=== PATIENT | male | born 1945 | race Caucasian/White ===

== ENCOUNTER → 2018-03-21 08:21 | Outpatient (CLI) | payer MEDICARE, SELFPAY ==
--- NOTE | 2018-03-21 08:58 | PET_ITS ---
EXAMINATION: FDG PET CT INDICATIONS: A 72-year-old male with history of head and neck carcinoma presenting for restaging examination. COMPARISON EXAMINATION: Previous FDG PET study dated 09/09/17. TECHNIQUE: Following the intravenous administration of 15.9 mCi of F-18 deoxyglucose via the right antecubital fossa, multiplanar image acquisitions of the neck, chest, abdomen and pelvis to level of mid thigh, obtained at one hour post radiopharmaceutical administration contemporaneously interpreted with the current CT of the neck, chest, abdomen and pelvis to level of mid thigh, dated 03/21/18 via coregistration and previous FDG PET study dated 09/09/17 reveal: SERUM GLUCOSE LEVEL: 92 mg/dl. HEIGHT: 74 inches. WEIGHT: 177 lbs. FINDINGS: 1. There is no quantitative scintigraphic evidence of abnormal increased glucose metabolism on meticulous inspection of whole body acquisitions to include all three axis reconstructions. 2. Normal physiologic distribution of the radiopharmaceutical is apparent in the hepatic and splenic parenchyma, both renal units, bladder and visualized intestinal tract. Focal increased glucose concentration is observed in the periosseous soft tissues of the right proximal femur associated with apparent orthopedic hardware placement most consistent with postsurgical change. Prominent glucose metabolism is defined in the descending thoracic aorta. There is a focal increase in glucose metabolism manifest in the midline anterior fifth lumbar vertebra corresponding to apparent osteophyte formation most consistent with degenerative arthritis. Udml-G-Lpjv-MediPort placement is noted. The prior defined morphologic-anatomic changes noted on CT of the neck, chest, abdomen and pelvis manifest on the FDG PET CT study dated 09/09/17 are essentially unchanged on the present examination. PET/PET/CT Tumor Base -Thigh Subs IMPRESSION: 1. NEGATIVE EXAMINATION. There is no definitive quantitative scintigraphic evidence of recurrent-metastatic viable neoplasm. 2. Prominent glucose concentration observed in the descending thoracic aorta is commensurate with activated leukocytes associated with atherosclerotic plaque formation. (Hanjulianna et al, Clinical Nuclear Medicine 29:93, 2004). 3. Overall, compared to the prior FDG PET study dated 09/09/17, there is current and apparent continued absence of defined viable neoplastic disease. Electronic Signature Richar Dowd D.O. Electronically Signed: Richar Dowd DO at 7:22 EDT Tel , Service support ,
== END ==
PROVIDERS: Family Provider Family Medicine; PCP Family Medicine
DX: C01 Malignant neoplasm of base of tongue (principal)
CPT/HCPCS: 78815; 96523; A9552; A4216

== ENCOUNTER → 2020-02-27 15:13 | Outpatient (CLI) | payer MEDICARE, SELFPAY ==
--- NOTE | 2020-02-27 15:23 | PET_ITS ---
EXAMINATION: FDG PET-CT INDICATIONS: A 74-year-old male with reported history of head and neck carcinoma presenting for restaging examination. COMPARISON EXAMINATION: Previous FDG PET study report dated 03/21/2018 INDEX LESION SIZE SUV INTERPRETATION NEW: prostate gland-R 17.6-mm (frame 66) 4.5 May be further investigated with magnetic resonance imaging secondary to quantitative degree of uptake TECHNIQUE: Following the intravenous administration of 10.98 mCi of F-18 deoxyglucose via the left antecubital fossa, multiplanar image acquisitions of the neck, chest, abdomen and pelvis to level of mid thigh, obtained at one hour post radiopharmaceutical administration contemporaneously interpreted with the current CT of the neck, chest, abdomen and pelvis, to level of mid thigh, dated 02/26/2020 via coregistration and previous FDG PET study report dated 03/21/2018 reveals: BLOOD GLUCOSE LEVEL:?? 83 mg/dl?HEIGHT:?74 inches?WEIGHT: 185 lbs. FINDINGS: 1. There is an increase in radiopharmaceutical concentration observed in the lower pelvis, caudal to the urinary bladder, contiguous to the prostate gland extending from the mid gland-right base. The calculated maximal standard uptake value is 4.5. The maximal axial diameter of the 17.6-mm (AP). 2. Normal physiologic distribution of the radiopharmaceutical is apparent in the hepatic (2.1) and splenic parenchyma, both renal units, bladder and visualized intestinal tract. The visualized portion of the cerebral cortex demonstrate symmetric and preserved glucose metabolism. Diffuse radiopharmaceutical concentration is noted in all four quadrants of the abdomen and pelvis. Prominent radiopharmaceutical concentration is observed in the left lower hemipelvis in proximity to the left ureterovesical junction with associated calcified soft tissue. Pertinent CT findings are as follows: CHEST: Ana Lilia-cath placement is noted. There is atherosclerotic calcification defined in the thoracic aorta without evidence of dilatation-aneurysm formation. Coronary arterial calcification is observed. Bilateral axillary and subcentimeter scattered mediastinal soft tissue is ametabolic. Emphysematous changes are noted in the bilateral upper lung zones. There are no parenchymal densities-nodules defined in the right and left hemithorax demonstrating discernible increased FDG uptake. ABDOMEN AND PELVIS: Calcification is noted in the abdominal aorta. The maximal axial diameter of the distal right common iliac artery is 20.2-mm. The prostate gland is prominent in size with dystrophic calcification. Abdominal-pelvic arterial calcification is observed. There appears to be evidence of renal calculus at the level of the distal left ureter. SKELETAL: Degenerative changes are noted in the cervical, thoracic and lumbar spine. Facilitated uptake is noted in the intervertebral disc space at the level of the third-fourth lumbar vertebrae most consistent with degenerative arthritis. PET/PET/CT Tumor Base -Thigh Subs IMPRESSION: 1. Increased glucose metabolism observed in the prostate gland to the right of the midline may be further investigated with magnetic resonance imaging if neoplasia is a diagnostic consideration. 2. Overall, compared to the prior FDG PET study report dated 03/21/2018, increased radiopharmaceutical concentration observed in the region of the prostate gland may be further investigated with magnetic resonance imaging if clinically indicated. Electronic Signature Richar Dowd D.O. Accurate Quantification of SUVs for this report are calculated using the exclusive patented [employer]. Electronically Signed: Richar Dowd DO at 23:12 EDT Tel , Service support ,
== END ==
PROVIDERS: PCP Family Medicine; Referring Provider Otolaryngology; Visit Provider Otolaryngology
DX: C01 Malignant neoplasm of base of tongue (principal); C77.0 Secondary and unspecified malignant neoplasm of lymph nodes of head, face and neck
CPT/HCPCS: 78815; A9552

== ENCOUNTER → 2020-03-18 14:19 | Outpatient (CLI) | payer MEDICARE, SELFPAY ==
[2017-07-01 10:34] VITALS: BMI 22.7
[2020-03-18 15:25] LABS: PSA,Total- Diagnostic 0.17 ng/mL (0.0-4.0)
== END ==
PROVIDERS: PCP Family Medicine; Referring Provider Urology; Visit Provider Urology
DX: R97.20 Elevated prostate specific antigen [PSA] (principal); R82.998 Other abnormal findings in urine
CPT/HCPCS: 84153; 87077; 87086; 87088; 87186

== ENCOUNTER → 2020-10-01 10:19 | Outpatient (CLI) | payer MEDICARE, SELFPAY | PROVIDERS: PCP Family Medicine; Referring Provider Urology; Visit Provider Urology | DX: N39.0 Urinary tract infection, site not specified (principal) | CPT/HCPCS: 87086 ==

== ENCOUNTER → 2021-01-06 | Outpatient (CLI) | payer MEDICARE, SELFPAY | END | disposition home or self-care (01) | LOC: LABSPEC 12:15 | PROVIDERS: PCP Family Medicine; Visit Provider Nurse Practitioner Adult Health | DX: N40.1 Benign prostatic hyperplasia with lower urinary tract symptoms (principal) | CPT/HCPCS: 87086; 87088 ==

== ENCOUNTER 2021-02-07 06:15 | Day surgery (SDC) | payer MEDICARE, SELFPAY ==
--- NOTE | 2021-02-04 11:11 | EKG12_ITS ---
Test Reason : PRE OP Blood Pressure : / mmHG Vent. Rate : 079 BPM Atrial Rate : 079 BPM P-R Int : 148 ms QRS Dur : 134 ms QT Int : 400 ms P-R-T Axes : 059 169 050 degrees QTc Int : 458 ms Normal sinus rhythm Right bundle branch block Left posterior fascicular block Bifascicular block Abnormal ECG Confirmed by TONY INGRAM, ABIMBOLA ([id number]), manager editorial JUANI WALL ([id number]) on 02/05/2021 9:33:09 AM Referred By: Mark Aguilar Confirmed By:ABIMBOLA JIMENEZ MD
[2021-02-04 11:59] LABS: Hemoglobin 14.5 g/dL (13.0-16.5); Mean Corp Hgb Conc 31.5 g/dL (32-36); Mean Corpuscular Hgb 28.7 pg (27.0-32.0); Mean Corpuscular Volume 90.9 fL (80-94); Mean Platelet Vol. 8.7 fl (6.2-12.0); Platelet Count 224 K/mm3 (150-450); RBC Distribution Width CV 13.5 % (11.6-14.6); RBC Distribution Width SD 45.3 fl (35.1-43.9); Red Blood Count 5.06 M/mm3 (4.6-6.2); White Blood Count 6.2 K/mm3 (4.4-11.0)
[2021-02-04 12:13] LABS: Anion Gap 4 (5-15); BUN 32 mg/dL (7-18); BUN/Creat Ratio 26.2 RATIO (10-20); Calcium,Total 9.2 mg/dL (8.5-10.1); Chloride 107 mmol/L (98-107); Creatinine, Serum 1.22 mg/dL (0.70-1.30); EST Glomerular Filtration Rate 62 mL/min (>60); Est Glom Filt Rate - Afr Amer 75 mL/min (>60); Glucose 91 mg/dL (74-106); Potassium 4.1 mmol/L (3.5-5.1); Sodium Level 140 mmol/L (136-145)
[2021-02-07] VITALS (11 sets, daily range): BP systolic 111–181; BP diastolic 72–100; PULSE 57–72; RESP 16–18; TEMP 36.2–36.8; O2SAT 92–100; BMI 21.4
[2021-02-07] MEDS: Lactated Ringers 1,000 ML 100 ML IV ×2 (06:59→11:06)
--- NOTE | 2021-02-07 08:25 | PROS_PTH ---
PATIENT: SANTINO HINOJOSA LOC: [facility] – [place] U#:[id number] AGE/SX: 75/M ROOM: RE02/07/[address]: Dr. Mark Aguilar MD : 1945 BED: DIS: 02/08/2021 SPEC #: [id number] RECD: 02/07/21 12:43 STATUS: KASIA REBelinda #: [id number] DANIEL: 02/07/21 08:[address]: Mark Aguilar DEPT: SURGICAL PATHOLOGY RECD BY: Kaylie Jones ENTERED: 02/07/21 13:50 SP TYPE: TURP OTHR DR: Dr. Farhan Saunders MD Tissues: Prostate, NOS Procedures: Surgery Specimen Level IV HEADER OPERATION: Cysto, TUR prostate, Olympus PRE-OP DIAGNOSIS: BPH with obstruction / lower urinary tract symptoms TISSUE SUBMITTED: Prostate chips MICROSCOPIC DIAGNOSIS Prostate chips, TUR: Benign prostatic hyperplasia, glandular and stromal type. Focal chronic inflammation, squamous metaplasia and basal cell hyperplasia. MIC:jimmy 02/11/2021 MICROSCOPIC DESCRIPTION Slides are reviewed. GROSS DESCRIPTION Received is one container labeled with the patient's name and designated prostate chips. The specimen consists of multiple irregular fragments of pink-akins, rubbery, soft tissue that in aggregate weigh 38.6 gm and measure in aggregate 9 x 9 x 4 cm. A few small fragments of akins-brown stones are also noted. Show Card Writer tissue is submitted in ten cassettes. / IMC:jimmy 02/07/21 TC:5 CPT: 76959
[2021-02-07] MEDS: Cefazolin 2 GM in 0.9% Normal Saline 100 ML IV (08:26)
--- NOTE | 2021-02-07 08:28 | PCM.HP.STD ---
HPI - General HPI Narrative SANTINO HINOJOSA, is a 75 M who presents with BPH and bladder outlet obstruction, he has been on maximal medical therapy and still has significant urinary symptoms and difficulties emptying his bladder so we can proceed with a TURP [facility] Medical History (Updated 02/07/21 @ 08:[address] Mark Aguilar MD) Cancer cardiac stent placement (~2014) Heart disease History of heart attack (~2014) Smoker Wears dentures Wears glasses Wears hearing aid Home Medications finasteride 5 mg PO DAILY 11/04/16 [History Last Taken 11/06/16 08:00] tamsulosin [Flomax] 0.4 mg PO DAILY 11/04/16 [History Last Taken Unknown] ciprofloxacin HCl [Cipro] 500 mg PO BID #10 tab 02/07/21 [Rx Last Taken Unknown] Allergy/AdvReac Type Severity Reaction Status Date / Time No Known Allergies Allergy Verified 01/31/21 13:26 Family History (Updated 09/28/17 @ 09:15 by Marivel Martinez) Father Alzheimer disease Mother Breast cancer Surgical History (Updated 01/31/21 @ 13:41 by Shari Hannah) History of back surgery History of partial knee replacement (~2004) Hx of neck surgery Hx of tonsillectomy Social History Smoking Status: Former smoker ROS Constitutional Constitutional: Denies chills, fever(s) or malaise Eyes Eyes: Denies blurry vision or change in vision ENT HEENT: Reports none Cardiovascular Cardiovascular: Denies chest pain or palpitations Respiratory/Chest Respiratory/Chest: Denies cough or shortness of breath with exertion Gastrointestinal Gastrointestinal: Denies abdominal pain, constipation or diarrhea Genitourinary Genitourinary: Reports systems reviewed and no addt'l complaints, except as documented Musculoskeletal Musculoskeletal: Denies back pain, joint stiffness or joint swelling Integumentary Integumentary: Denies dry skin, jaundice, lesions or rash Neurologic Neurologic: Denies confusion, syncope or weakness Psychiatric Psychiatric: Reports none; Denies anxiety or depression Endocrine Endocrinology: Denies excessive sweating, fatigue or flushing Hematologic/Lymphatic Hematologic/Lymphatic: Denies anemia, easy bleeding or easy bruising Vital Signs Vital Signs Vital Signs: 02/07/21 06:51 Temperature 97.9 F Temperature Source Temporal Pulse Rate 67 Respiratory Rate 16 Respiratory Pattern Normal Blood Pressure 160/100 H Blood Pressure Mean 120 Blood Pressure Source Monitor Blood Pressure Position Semi-Fowlers Blood Pressure Location Right Arm Pulse Ox 97 Oxygen Delivery Method Room Air Weight Weight: 75.6 kg Body Mass Index (BMI) 21.4 Physical Exam Const alert and oriented x3 General Appearance: cooperative HEENT normocephalic, head/scalp atraumatic, EAC's normal and TM's normal bilaterally Eyes PERRL and EOMs intact bilaterally Pupil: sluggish Neck no lymphadenopathy, supple and no JVD General: trachea midline Lymph Lymphatic: no lymphadenopathy noted, lymphedema and lymphadenopathy Resp normal respiratory effort, normal air movement and clear to auscultation bilaterally Cardio regular rate, regular rhythm and peripheral pulses 2+ throughout GI soft to palpation, non-tender and non-distended Extremity normal capillary refill and no clubbing, cyanosis or edema General Extremity: no tenderness to palpation of joints or extremities Skin no rashes or lesions noted General Skin Exam: turgor normal Lesions: no lesions Rashes: no rashes Neuro CN's II-XII intact bilaterally Speech: speech normal Motor Exam: strength 5/5 throughout; Negative for general weakness Psych thought process normal, cooperative and affect normal Appearance: appropriate Lab / Micro Data Result Diagrams: 02/04/21 11:32 02/04/21 11:32 Micro: Microbiology 02/06/21 11:15 SARS-CoV-2 Antigen (Rapid) - Final Interface Orders Assessment & Plan Assessment/Plan (1) BPH with obstruction/lower urinary tract symptoms: PLAN: Plan to proceed with transurethral section of the prostate
--- NOTE | 2021-02-07 08:30 | PCM.DC ---
Discharge Instructions Diet Discharge Diet: No restrictions Activity Discharge Activity: May not drive while taking narcotic pain medications. (for 3 days.) May shower in (days): 1 Dressing / Incision Call your doctor if your incision/area has: Continuous Slow Oozing, Increased Pain/ Swelling, Increased Redness and Foul Smelling Discharge Call your doctor if you observe: Fever of 101 or Higher, Numbness or Tingling, Shortness of breath, Dizziness, Calf discomfort and Uncontrolled pain Cleanse incision/area with: Keep Dressing Clean & Dry Follow Up Care Please Follow Up With: Mark Aguilar MD When: Call [phone] for an appointment Test Results: Test results from this visit will be discussed in further detail at your follow-up appointment, if applicable. Discharge Plan Admission Primary Reason for Your Visit: TURAparna Attending Provider: Mark Aguilar Primary Care Provider: Farhan Saunders Discharge Orders/Prescriptions Prescriptions: New ciprofloxacin HCl [Cipro] 500 mg tablet 500 mg PO BID Qty: 10 RF: 0 Continued tamsulosin [Flomax] 0.4 MG capsule 0.4 mg PO DAILY RF: 0 finasteride 5 MG tablet 5 mg PO DAILY RF: 0 Referrals / Follow Up: Mark Aguilar MD [STAFF PHYSICIAN] - Farhan Saunders MD [Primary Care Provider] -
--- NOTE | 2021-02-07 10:13 | PCM.OPRPT ---
Report of Operation Date of Procedure: 02/07/21 Pre-Operative Diagnosis: BPH with obstruction Post-Operative Diagnosis: Same Surgery/Procedure Performed:: Transurethral section of the prostate Description of Surgical Findings:: In the preoperative setting I discussed with the patient how the surgery would be done with expect afterwards. We discussed how a prostate resection is done and we discussed the risk of the surgery including, bleeding, infection, retrograde ejaculation, changes with ejaculation or intercourse,. We discussed the possibility that the resection of the prostate may not alleviate his urinary symptoms. We discussed the small risk of developing scar tissue along the urethral channel and strictures. We also discussed the chance of the prostate could grow back and he may need further surgery or treatment in the future for prostate problems. Patient was taken back to the operating room, timeout procedure was performed, he was identified and marked and placed on the operating room table. He underwent general anesthesia. He was placed in dorsolithotomy position. Penis and testicles were prepped and draped in usual sterile fashion. Went into the bladder using the visual obturator with a resectoscope. Once inside the bladder identified the right and left ureteral orifice. I then identified the prostate and the anatomy of the prostate. I marked out the area of the sphincter and the verumontanum was identified. I then proceeded with the prostate resection first resected the median lobe. And then resected the right lobe of the prostate. Then to resect the left lobe of the prostate. I then resected the apical tissue of the prostate. Made sure that there was no injury to the sphincter or the verumontanum was still intact. At the end of the resection all the chips were Ellik out of the bladder. I then identified the left and right ureteral orifice and these were confirmed to be in good position and effluxing and not injured. The resectoscope was removed, a 22 [place] catheter was placed into the bladder on continuous irrigation. And the urine was fairly light pink color and draining normally. He was taken back to the PACU in good condition. Surgeon: Jeff Type of Anesthesia: General Drains: 22 [place]ayan three-way catheter Admit VTE Documentation VTE Present on Admission: No VTE Mechan Device Prophylaxis: SCD's
[2021-02-07 10:51] LABS: Bedside Glucose 98 mg/dL (70-110)
[2021-02-07] MEDS: 0.9% Normal Saline 1,000 ML 125 ML IV ×2 (12:19→20:46)
[2021-02-07] MEDS: Ciprofloxacin 400 MG/200 ML BAG 200 MG IV (16:56)
[2021-02-07] MEDS: Finasteride 5 MG Tablet PO (18:43)
[2021-02-07] MEDS: Tamsulosin HCl 0.4 MG Capsule PO (18:43)
[2021-02-08 00:21] VITALS: BP 128/74; PULSE 66; RESP 16; TEMP 37.1; O2SAT 93
[2021-02-08 04:06] VITALS: BP 148/79; PULSE 70; RESP 16; TEMP 37; O2SAT 97
[2021-02-08] MEDS: Ciprofloxacin 400 MG/200 ML BAG 200 MG IV (04:09)
[2021-02-08] MEDS: 0.9% Normal Saline 1,000 ML 125 ML IV (05:15)
[2021-02-08 08:09] VITALS: BP 136/84; PULSE 70; RESP 16; TEMP 37; O2SAT 96
[2021-02-08 08:10] VITALS: PULSE 68
[2021-02-08] MEDS: Finasteride 5 MG Tablet PO (10:23)
[2021-02-08 13:00] VITALS: BP 139/88; PULSE 84; RESP 18; TEMP 36.7; O2SAT 97
[2021-02-08] MEDS: 0.9% Saline Lock 10 ML Syringe IV (13:42)
== END 2021-02-08 13:45 | disposition home or self-care (01) ==
LOC: SDC 06:17 → AC 06:17 → MS3 02-11 11:47
PROVIDERS: Anesthesiology; PCP Family Medicine; Referring Provider Urology; Visit Provider Urology
PROC: (CPT 52630; principal; 2021-02-07 08:15)
DX: N40.1 Benign prostatic hyperplasia with lower urinary tract symptoms (principal); N41.1 Chronic prostatitis; Z87.891 Personal history of nicotine dependence; I25.2 Old myocardial infarction; Z95.5 Presence of coronary angioplasty implant and graft; I45.10 Unspecified right bundle-branch block; Z79.899 Other long term (current) drug therapy; N13.8 Other obstructive and reflux uropathy
CPT/HCPCS: 52630; 36415; 80048; 82962; 85027; 87426; 88305; 93005; 99406; C9803; J7030; J7120; A4216; J0744; J2405

== ENCOUNTER → 2021-07-08 15:39 | Outpatient (CLI) | payer MEDICARE, SELFPAY ==
--- NOTE | 2021-07-08 15:00 | PET_ITS ---
EXAMINATION: FDG PET-CT INDICATIONS: A 75-year-old male with a history of head and neck carcinoma presenting for restaging examination. COMPARISON EXAMINATION: FDG PET CT study dated 02/29/20, CT of the chest report dated 06/26/21. INDEX LESION SIZE SUV INTERPRETATION NEW: Left anterior neck 12.6 mm largest (frame 217) 2.7 max Fulfills quantitative criteria for viable neoplasm. NEW: Carinal level mediastinum and right thoracic perihilum 44.2 mm largest (frame 189) 7.6 max Fulfills quantitative criteria for viable neoplasm. NEW: Left and right lobe hepatic parenchyma 8.8 max Fulfills quantitative criteria for viable neoplasm. NEW: Axial skeletal structures 4.9 max Fulfills quantitative criteria for viable neoplasm. TECHNIQUE: Following the intravenous administration of 19.01 mCi of F-18 deoxyglucose via the right antecubital fossa, multiplanar image acquisitions of the head, neck, chest, abdomen and pelvis to level of mid-thigh, lower extremities obtained at one hour post radiopharmaceutical administration contemporaneously interpreted with the current CT of the head, neck, chest, abdomen and pelvis to level of mid-thigh, lower extremities dated 07/08/21 via coregistration and FDG PET CT study dated 02/29/20, CT of the chest report dated 06/26/21 reveal: SERUM GLUCOSE LEVEL: mg/dl. HEIGHT: 62 inches. WEIGHT: lbs. FINDINGS: 1. Newly identified increased FDG distribution is defined in the left anterior neck involving level IV rendering a calculated maximum standard uptake value of 2.7. The maximum axial diameter of the largest corresponding hypermetabolic soft tissue density on review of CT of the chest dated 07/08/21 is 12.6 mm (AP). 2. Enhanced fluorine labeled glucose metabolism is currently visualized in the carinal level mediastinum and right thoracic perihilum registering a calculated maximum standard uptake value of 7.6. The maximum axial diameter of the largest metabolic, morphologic abnormality on review of CT of the chest dated 07/08/21 is 44.2 mm (AP). 3. Innumerable foci of increased radiopharmaceutical are manifest throughout the left and right lobe of an enlarged liver which demonstrates a maximum vertical dimension of 29.9 cm (normal less than 18.5). The calculated maximum standard uptake value is 8.8 with a lesion to liver background ratio greater than 2.0. Disseminated uptake noted throughout the left and right lobe preclude assessment of the largest individual metabolic abnormality. 4. Enhanced labeled GLUCOSE is observed in the right posterior first rib, sixth thoracic vertebra, right sacral ala, right acetabulum, posterior midline sacrum generating a calculated maximum standard uptake value of 4.9. 5. Normal physiologic distribution of the radiopharmaceutical is apparent in the hepatic (2.4/2.1) and splenic parenchyma, both renal units, bladder and visualized intestinal tract. The visualized portion of the cerebral cortex demonstrate symmetric and preserved glucose metabolism. Diffuse intestinal tract activity is noted throughout all four quadrants of the abdominal-pelvic retroperitoneum and mesentery consistent with normal physiologic distribution of the radiopharmaceutical. Pertinent CT findings are as follows. CHEST: A right hemithorax pleural effusion is nonglucose avid. Emphysematous changes are noted in the bilateral upper lung osorio. There is atherosclerotic calcification defined in the thoracic aorta without evidence of dilatation-aneurysm formation. Coronary arterial calcification is observed. There is visualization of the Jhqtfmmh-Evqi-P-Cath. Bilateral axillary soft tissue densities reveal no evidence of increased tracer uptake. ABDOMEN AND PELVIS: Atherosclerotic calcification is defined in the abdominal aorta without evidence of dilatation, aneurysm formation. Abdominal-pelvic arterial calcification is defined. Intravenous contrast material is noted within the urinary bladder. Free pelvic fluid is ametabolic. The abdominal aorta is tortuous in presentation with atherosclerotic calcification without evidence of dilatation-aneurysm. Pelvic arterial calcification is observed. Diffuse colonic diverticulosis is noted. SKELETAL: Orthopedic hardware placement is evident in the right proximal femur. Degenerative changes defined in the cervical, thoracic and lumbar spine demonstrate no evidence of glucose hypermetabolism. PET/PET/CT Tumor Base -Thigh Subs IMPRESSION: 1. ABNORMAL EXAMINATION INDICATIVE OF MALIGNANT-METASTATIC VIABLE NEOPLASM. 2. Increased glucose concentration noted in the left anterior neck involving level IV fulfills quantitative criteria for viable metastatic disease. 3. Mediastinal and right thoracic perihilar hypermetabolic foci fulfill quantitative criteria for metastatic involvement. (Angel donis al, Journal of Clinical Oncology 16:2142, 1998) 4. Enhanced fluorine labeled glucose metabolism multifocally apparent mildly enlarged liver fulfills quantitative criteria for viable hepatic parenchymal metastatic disease. (Rachelle et al, Archives of Surgery, 133:510 1998) 5. Axial skeletal hypermetabolic foci fulfill quantitative criteria for viable osseous neoplasm. 6. Overall, compared to the prior FDG PET CT study dated 02/27/20, there is interim development of multifocal expressed metastatic disease. Electronic Signature Richar Dowd D.O. Accurate Quantification of SUVs for this report are calculated using the exclusive [employer]. (U.S. Patent No. [id number] [id number]). Standardization and correction of the FDG SUV metric via [employer] technology allow for vendor non-specific objective quantitative examination comparison and optimization of the sensitivity and specificity of the FDG PET-CT examination. Electronically Signed: Richar Dowd DO at 22:46 EDT Tel , Service support ,
== END ==
PROVIDERS: PCP Family Medicine; Referring Provider Otolaryngology; Visit Provider Otolaryngology
DX: C01 Malignant neoplasm of base of tongue (principal)
CPT/HCPCS: 78815; A9552

== ENCOUNTER 2021-07-15 13:56 | Inpatient (IN) | payer MEDICARE, SELFPAY ==
[2021-07-15] VITALS (9 sets, daily range): BP systolic 136–150; BP diastolic 73–82; PULSE 66–84; RESP 13–18; TEMP 36.7–37.3; O2SAT 86–100; BMI 22.8; BMI 22.9
--- NOTE | 2021-07-15 14:39 | EX.ED.DYSGE1 ---
HPI History of Present Illness Chief Complaint: General Illness Informant: patient, spouse/S.O. and PCP Narrative Narrative: Patient was referred in by Dr. Burk in oncology for admission due to profound generalized and accelerating weakness. About 2 weeks ago this patient was active walking around with no difficulties. He walked the dog and walk around the neighborhood. He is now to the point he really cannot get himself up out of a chair. He states he has no pain or dyspnea. He has no symptoms other than profound weakness. This patient has a history of heart disease with stents about 7 years ago but is on no meds at all at this time. He has a history of throat cancer with chemo radiation and surgery about 4 years ago. He was considered cured. He has gotten annual PET scans. About 2 weeks ago he was having progressive trouble swallowing. This was thought to be due to radiation. He went in for dilation. On preoperative CT a mass was seen on his chest. This led to scanning of the chest and abdomen at another facility. There appeared to be potentially metastatic disease. He did have a dilation of the esophagus done and is eating and drinking fine now. He gets he is still had about a 20 pound weight loss. He started getting bilateral leg swelling about a week ago. He was seen at another hospital had CAT scan and ultrasounds of his lower extremities. Evidently there is no clot but his large liver is full of multiple metastatic masses that are compressing the inferior vena cava. He was seen in oncology today. The plan is to try to get biopsy of liver or lung lesion to get a diagnosis and to give them a prognosis. They do know that the prognosis is poor but they would like to look at options of potential treatment for extending his life somewhat.. However, he is too weak to have this done at this time. The is to the point she cannot really carry or lift him. He has been trying to use a walker but he has been getting too weak for that. Patient actually denies any pain or breathing issues. He is just weak. Nothing makes this better or worse. He is eating now and that is not helping. [facility] Medical History (Updated 07/15/21 @ 23:[address] Yonathan Patel MD) BPH with obstruction/lower urinary tract symptoms CAD (coronary artery disease) Diabetes History of heart attack (~2014) Kidney stones Oropharyngeal cancer Smoker Wears dentures Wears glasses Wears hearing aid Home Medications NK 07/15/21 [History Last Taken Unknown] Allergy/AdvReac Type Severity Reaction Status Date / Time No Known Allergies Allergy Verified 07/15/21 14:04 Family History Father Alzheimer disease Mother Breast cancer Surgical History (Updated 07/15/21 @ 20:[address] Leonie Sanchez MD) History of back surgery History of partial knee replacement (~2004) Hx of neck surgery Hx of tonsillectomy S/P angioplasty with stent S/P TURP Social History (Updated 07/15/21 @ 20:[address] Leonie Sanchez MD) household members: spouse Smoking Status: Former smoker how long ago did patient quit smoking: Intermittent cigar smoking, 1-2/day since youth. alcohol intake: never substance use type: does not use ROS ROS ED Constitutional Constitutional ED: Reports weight loss; Denies chills, fever(s) or subjective Eyes Eyes: Denies blurry vision or change in vision ENT ENT ED: Denies rhinorrhea or sore throat Cardiovascular Cardiovascular: Denies chest pain or palpitations Respiratory/Chest Respiratory/Chest: Denies cough or dyspnea Gastrointestinal Gastrointestinal: Reports other Details: Abdomen is enlarging in girth. But there is no pain. ; Denies abdominal pain, diarrhea, melena, nausea or vomiting Genitourinary Genitourinary ED: Denies dysuria or hematuria Musculoskeletal Musculoskeletal: Reports other Details: Bilateral lower extremity swelling that has occurred over the last 7 to 10 days. ; Denies arthralgias, back pain, myalgias or neck pain Integumentary Denies rash Neurologic Neurologic: Reports other Details: No focal weakness. ; Denies headache(s), paresthesias or weakness Psychiatric Psychiatric: Denies depression Endocrine Endocrinology: Denies polyuria Allergic/Immunologic Allergic/Immunologic ED: Denies mouth swelling or urticaria EXAM Physical Exam Const Vital Signs: 07/15/21 13:57 07/15/21 14:31 07/15/21 16:10 Temperature 99.2 F H Temperature Source Temporal Pulse Rate 66 71 74 Respiratory Rate 16 13 16 Respiratory Effort Normal Non-Labored Respiratory Pattern Normal Blood Pressure 137/77 H 150/75 H Blood Pressure Mean 97 100 Pulse Ox 93 92 95 Oxygen Delivery Method Room Air Room Air Room Air 07/15/21 16:45 11/02/21 18:12 07/15/21 18:30 Temperature 99.2 F H 98.3 F Temperature Source Temporal Oral Pulse Rate 76 82 Respiratory Rate 14 14 Respiratory Effort Respiratory Pattern Blood Pressure 141/82 H 140/77 H Blood Pressure Mean 101 98 Pulse Ox 93 100 Oxygen Delivery Method Room Air Room Air Patient is sitting quietly in bed. He looks comfortable. Positive well nourished and well developed General Appearance ED: well developed and NAD HEENT Reports moist mucous membranes Negative for trauma or tenderness Eyes General Eye ED: Negative for pale conjunctiva or scleral icterus Neck Neck Narrative: Prior neck surgery on the right. No stridor. Chest Wall Chest Narrative: Med port in left upper chest wall. Not infected. Resp normal respiratory effort Resp Narrative: Easy unlabored breathing. Mild coarse breath sounds toward the left base that resolved with breathing. Cardio regular rate, regular rhythm and no murmurs GI GI Narrative: Abdomen is distended. It appears to be a firm hard nontender very large liver that is taking up the majority of his abdomen. There does not appear to be any fluid. Back/Spine no CVA tenderness Extremity Extremity Narrative: Patient has bilateral +3 pitting edema. No tenderness. No distended veins. No asymmetry. Neuro oriented x3 Sensorium / Orientation: alert Psych mental status grossly normal Skin no rashes or lesions noted MDM MDM MDM Narrative Medical decision making narrative: Patient has slight elevation white count decreased hemoglobin. He has elevation of all LFTs. INR is still normal. Lipase is normal. Lactate is normal. CT scan does show by lateral metastasis. I had discussion with the and patient. They know that the outcome of this is very poor. However, they would like to try to get a diagnosis to see if there is any possible therapy that might help him for a short period of time. With the patient's profound weakness, near fall yesterday, his cannot care for him safely at home, new metastatic disease in liver lungs and brain, he will be admitted. Lab Data Attestation: I reviewed the patient's lab results. Labs: Laboratory Results - last 24 hr 07/15/21 07/15/21 07/15/21 15:15 15:15 15:15 WBC 13.3 H RBC 4.30 L Hgb 11.6 L Hct 37.1 L MCV 86.3 MCH 27.0 MCHC 31.3 L RDW Std Deviation 60.8 H RDW Coeff of Rocky 19.9 H Plt Count 173 MPV 9.8 Immature Gran % (Auto) 1.400 H Neut % (Auto) 90.9 H Lymph % (Auto) 2.1 L [place] % (Auto) 5.4 Eos % (Auto) 0.0 Baso % (Auto) 0.2 Absolute Neuts (auto) 12.1 H Absolute Lymphs (auto) 0.28 L Nucleated RBC % 0 Differential Comment SCANNED PT 14.0 INR 1.1 Sodium 141 Potassium 3.6 Chloride 106 Carbon Dioxide 30.0 Anion Gap 5 BUN 35 H Creatinine 1.13 Estim Creat Clear Calc 65.50 Est GFR (MDRD) Af Amer 81 Est GFR (MDRD) Non-Af 67 BUN/Creatinine Ratio 31.0 H Glucose 75 Lactic Acid Calcium 8.2 L Phosphorus Magnesium Total Bilirubin 1.70 H AST 237 H ALT 111 H Alkaline Phosphatase 366 H Troponin I High Sens 26 Total Protein 5.3 L Albumin 2.1 L Globulin 3.2 Albumin/Globulin Ratio 0.7 L Lipase 249 07/15/21 07/15/21 15:15 15:15 WBC RBC Hgb Hct MCV MCH MCHC RDW Std Deviation RDW Coeff of [place] Plt Count MPV Immature Gran % (Auto) Neut % (Auto) Lymph % (Auto) [place] % (Auto) Eos % (Auto) Baso % (Auto) Absolute Neuts (auto) Absolute Lymphs (auto) Nucleated RBC % Differential Comment PT INR Sodium Potassium Chloride Carbon Dioxide Anion Gap BUN Creatinine Estim Creat Clear Calc Est GFR (MDRD) Af Amer Est GFR (MDRD) Non-Af BUN/Creatinine Ratio Glucose Lactic Acid 1.9 Calcium Phosphorus 2.6 Magnesium 2.3 Total Bilirubin AST ALT Alkaline Phosphatase Troponin I High Sens Total Protein Albumin Globulin Albumin/Globulin Ratio Lipase Radiography Diagnostic Testing: Clinical Impression(s) from Imaging Studies Brain CT 07/15/21 15:08 IMPRESSION: Bifrontal metastases. No acute abnormality. Electronically Signed: Inocente Christine MD at 17:24 EDT Tel , Service support , Venous Doppler Study 07/15/21 15:21 Interpretation Summary No evidence for acute deep venous thrombosis bilateral lower extremities with patent and compressible bilateral great saphenous veins. Ordering Physician: Yonathan Patel Performed By: Ki Cantu RVT Discharge Plan Dx/Rx/DC Orders Clinical Impression: Metastatic cancer, Inability to ambulate due to multiple joints Disposition Disposition: [facility] Discharge Date/Time: 07/15/21 19:30
--- NOTE | 2021-07-15 15:08 | CT_ITS ---
STUDY: CT BRAIN WITH AND WITHOUT CONTRAST REASON FOR EXAM: Male, 75 years old. Metastases RADIATION DOSAGE (If Supplied By Facility): CTDIvol = ( 44.99 ) mGy, DLP = ( 1580.97 ) mGycm TECHNIQUE: Transaxial CT imaging of the brain was performed pre and post contrast administration. The examination was performed with intravenous administration of 50 ML ISOVUE 370. Individualized dose optimization techniques were used for this CT. COMPARISON: None. FINDINGS: There are ring-enhancing Metastases in the left frontal lobe, approximately 1.4 cm and right frontal lobe deep white matter at 2 cm with surrounding vasogenic edema and minimal local sulcal mass effect. There is no midline shift, hydrocephalus or herniation. There are no extra parenchymal fluid collections. There are no skull destructive lesions.. CT/Brain/Head W/WO Contrast IMPRESSION: Bifrontal metastases. No acute abnormality. Electronically Signed: Inocente Christine MD at 17:24 EDT Tel , Service support ,
--- NOTE | 2021-07-15 15:21 | VDLE_ITS ---
Reason For Study: swelling RIGHT LEFT GSV is normal. GSV is normal. CFV is compressible, spontaneous, phasic, CFV is compressible, spontaneous, phasic, competent and demonstrates normal competent, and demonstrates normal augmentation. augmentation. FV is compressible, spontaneous, phasic, FV is compressible, spontaneous, phasic, competent and demonstrates normal competent and demonstrates normal augmentation. augmentation. POP V is compressible, spontaneous, phasic, POP V is compressible, spontaneous, phasic, competent and demonstrates normal competent and demonstrates normal augmentation. augmentation. T/P Trunk is compressible. T/P Trunk is compressible. PTV is compressible. PTV is compressible. RT PerV is compressible. LT PerV is compressible. Procedure This is a venous duplex using B-mode, color flow and spectral Doppler. Exam performed portable in ED. The exam was diagnostic. A preliminary report was called and/or faxed to Dr. Patel. VL/Venous Duplex US - Jcarlos Extrem Interpretation Summary No evidence for acute deep venous thrombosis bilateral lower extremities with p atent and compressible bilateral great saphenous veins. Ordering Physician: Yonathan Patel Performed By: Ki Cantu RVT
[2021-07-15 15:42] LABS: Absolute Lymphocyte Count 0.28 X10^3/uL (0.83-4.51); Absolute Neutrophil Count 12.1 X10^3/uL (2.0-7.7); Basophil# 0.02 X10^3/uL; Basophil% 0.2 % (0-1); Hematocrit 37.1 % (40-54); Hemoglobin 11.6 g/dL (13.0-16.5); Lymphocyte # 0.28 X10^3/ul (0.83-4.51); Lymphocyte % 2.1 % (19-41); Mean Corp Hgb Conc 31.3 g/dL (32-36); Mean Corpuscular Volume 86.3 fL (80-94); Mean Platelet Vol. 9.8 fl (6.2-12.0); Monocyte# 0.72 X10^3/uL; Monocyte% 5.4 % (0-10); NRBC Flagged by Analyzer 0 % (0-5); Neutrophil # 12.08 X10^3/uL (2.7-7.7); Neutrophil % 90.9 % (47-70); POSITIVE DIFFERENTIAL YES; Platelet Count 173 K/mm3 (150-450); RBC Distribution Width CV 19.9 % (11.6-14.6); RBC Distribution Width SD 60.8 fl (35.1-43.9); White Blood Count 13.3 K/mm3 (4.4-11.0)
[2021-07-15 15:53] LABS: ALB/GLOB Ratio 0.7 RATIO (0.9-2.4); AST(SGOT) 237 U/L (15-37); Alanine Aminotransfer ALT/SGPT 111 U/L (16-61); Albumin, Serum 2.1 g/dL (3.2-5.0); Alkaline Phosphatase 366 U/L (45-117); Anion Gap 5 (5-15); BUN 35 mg/dL (7-18); Calcium,Total 8.2 mg/dL (8.5-10.1); Chloride 106 mmol/L (98-107); Creatinine, Serum 1.13 mg/dL (0.70-1.30); EST Glomerular Filtration Rate 67 mL/min (>60); Est Glom Filt Rate - Afr Amer 81 mL/min (>60); Globulin 3.2 g/dL (2.2-4.2); Glucose 75 mg/dL (74-106); Lipase 249 U/L (73-393); Potassium 3.6 mmol/L (3.5-5.1); Protein, Total 5.3 g/dL (6.4-8.2); Sodium Level 141 mmol/L (136-145); Troponin-I HS 26 pg/mL (3.0-78.0)
[2021-07-15 16:01] LABS: Differential Indicated SCAN CRITERIA MET
[2021-07-15 16:05] LABS: International Normalized Ratio 1.1
[2021-07-15 16:11] LABS: Lactic Acid 1.9 mmol/L (0.4-1.9)
[2021-07-15 16:24] LABS: Differential Comment SCANNED
--- NOTE | 2021-07-15 18:34 | HP.PCM.HOS_ITS ---
HPI - General General Date of Admission: 07/15/21 Date of Service: 07/15/21 Chief Complaint: Severe weakness, progressive decline x 2 weeks. HPI Narrative The patient is a 75 y/o M w/ PMHx: CAD s/p PCI, Former Tobacco use, Diabetes mellitus type II, BPH, HTN, HLD, Disseminated Oropharyngeal cancer following w/ Dr. Burk who presents to the [facility] ED on 07/15/21 per Oncology recommendation with history of recent issue with oral intake however seem to improve following esophageal dilation unfortunately at that time patient did have a perioperative chest x-ray that showed concerns for metastatic disease with follow-up PET scan demonstrating similarly evidence of metastases with sudden onset over the last 2 weeks generalized weakness, fatigue, increased frequent falls, unable to even get out of a chair and required usage of a lift chair prompting family to eventually bring him to the ED for evaluation. Work-up in the ED included T 99. 2, heart rate 66, BP 137/77, respiratory rate 16, 92 to 93% on room air, CBC with WBC 13.3, hemoglobin 11.6, platelet 173 with left shift and lymphopenia, CMP with BUN/Cr 35/1.13, total bili 1.70, AST/ALT 237/111, alk phos 366, troponin high-sensitivity 26, lipase 246, CT head with ring-enhancing metastases in the left frontal lobe approximately 1.4 cm in right frontal lobe deep white matter 2 cm with some surrounding vasogenic edema and minimal local sulcal mass- effect with no evidence of any midline shift. ED physician did discuss case with patient's oncologist. [facility], [facility] Medical History (Updated 07/15/21 @ 20:[address] Leonie Sanchez MD) BPH with obstruction/lower urinary tract symptoms CAD (coronary artery disease) Diabetes History of heart attack (~2014) Kidney stones Oropharyngeal cancer Smoker Wears dentures Wears glasses Wears hearing aid Home Medications NK 07/15/21 [History Last Taken Unknown] Allergy/AdvReac Type Severity Reaction Status Date / Time No Known Allergies Allergy Verified 07/15/21 14:04 Family History Father Alzheimer disease Mother Breast cancer Surgical History (Updated 07/15/21 @ 20:[address] Leonie Sanchez MD) History of back surgery History of partial knee replacement (~2004) Hx of neck surgery Hx of tonsillectomy S/P angioplasty with stent S/P TURP Social History (Updated 07/15/21 @ 20:[address] Leonie Sanchez MD) household members: spouse Smoking Status: Former smoker how long ago did patient quit smoking: Intermittent cigar smoking, 1-2/day since youth. alcohol intake: never substance use type: does not use ROS ROS Narrative Admission Review of Systems: CONSTITUTIONAL: No weight loss, fever, chills, + weakness or fatigue. HEENT: Eyes: No visual loss, blurred vision, double vision or yellow sclerae. Ears, Nose, Throat: No hearing loss, sneezing, congestion, runny nose or sore throat. SKIN: No rash or itching, lesions, wounds. CARDIOVASCULAR: No chest pain, chest pressure or chest discomfort, palpitations, edema, orthopnea, syncopal events. RESPIRATORY: No shortness of breath, cough or sputum, wheezing, hemoptysis. GASTROINTESTINAL: No anorexia, nausea, vomiting or diarrhea, abdominal pain, melena, BRBPR. GENITOURINARY: No dysuria, frequency, urgency or retention. NEUROLOGICAL: + Profound diffuse weakness, difficulty walking, fatigue/malaise, No headache, dizziness, syncope, paralysis, ataxia, numbness or tingling in the extremities, focal weakness, change in bowel or bladder control, seizure. MUSCULOSKELETAL: + muscle, back pain, joint pain or stiffness. HEMATOLOGIC: + anemia, bleeding or bruising. LYMPHATICS: No enlarged nodes. No history of splenectomy. PSYCHIATRIC: No history of depression or anxiety. ENDOCRINOLOGIC: No reports of sweating, cold or heat intolerance. No polyuria or polydipsia. ALLERGIES: No history of asthma, hives, eczema or rhinitis. Vital Signs Vital Signs Vital Signs: 07/15/21 13:57 07/15/21 14:31 07/15/21 16:10 Temperature 99.2 F H Temperature Source Temporal Pulse Rate 66 71 74 Respiratory Rate 16 13 16 Respiratory Effort Normal Non-Labored Respiratory Pattern Normal Blood Pressure 137/77 H 150/75 H Blood Pressure Mean 97 100 Pulse Ox 93 92 95 Oxygen Delivery Method Room Air Room Air Room Air 07/15/21 16:45 07/15/21 18:12 07/15/21 18:30 Temperature 99.2 F H 98.3 F Temperature Source Temporal Oral Pulse Rate 76 82 Respiratory Rate 14 14 Respiratory Effort Respiratory Pattern Blood Pressure 141/82 H 140/77 H Blood Pressure Mean 101 98 Pulse Ox 93 100 Oxygen Delivery Method Room Air Room Air Weight Weight: 178 lb Body Mass Index (BMI) 22.8 Physical Exam Narrative Physical Examination: General: Awake, alert, oriented self, place, recent events, is very hard of hearing, seated upright in the ED bed, fatigued appearing. Skin: Normal color, normal turgor, no icterus, no cyanosis except occasional staged ecchymoses. HEENT: AT/NC, EOMI, PERRLA, dry MM, chronic mild voice changes, no carotid bruit s or JVD noted. Lungs: Diminished, greater bases, moderate effort, no rales, ronchi or wheezing, sunken chest, cachectic appearing. Heart: Regular rate and rhythm; no gallop, rub audible. Abdomen: Soft, no discomfort with palpation, mildly distended, distant hypoactive bowel sounds, positive HM. Extremities: No cyanosis, no clubbing, severe pedal to proximal knee 3-4+ pitting edema. Neurological: Patient awake, alert, oriented as noted, cognitive function suspect near baseline intact; pupils equally reactive to light and accommodation, cranial nerves II-XII grossly normal, moving all 4 extremities, no focal deficits, strength severely global decreased secondary to acute presentation. Psychiatric: Affect appears fatigued, flat, no acute evidence of depressive or anxiety feelings. Results Lab / Micro Data Result Diagrams: 07/15/21 15:15 07/15/21 15:15 Labs: Laboratory Results - last 24 hr 07/15/21 15:15: WBC 13.3 H, RBC 4.30 L, Hgb 11.6 L, Hct 37.1 L, MCV 86.3, MCH 27.0, MCHC 31.3 L, RDW Std Deviation 60.8 H, RDW Coeff of Rocky 19.9 H, Plt Count 173, MPV 9.8, Immature Gran % (Auto) 1.400 H, Neut % (Auto) 90.9 H, Lymph % (Auto) 2.1 L, [place] % (Auto) 5.4, Eos % (Auto) 0.0, Baso % (Auto) 0.2, Absolute Neuts (auto) 12.1 H, Absolute Lymphs (auto) 0.28 L, Nucleated RBC % 0, Differential Comment SCANNED 07/15/21 15:15: PT 14.0, INR 1.1 07/15/21 15:15: Sodium 141, Potassium 3.6, Chloride 106, Carbon Dioxide 30.0, Anion Gap 5, BUN 35 H, Creatinine 1.13, Estim Creat Clear Calc 65.50, Est GFR (MDRD) Af Amer 81, Est GFR (MDRD) Non-Af 67, BUN/Creatinine Ratio 31.0 H, Glucose 75, Calcium 8.2 L, Total Bilirubin 1.70 H, AST 237 H, ALT 111 H, Alkaline Phosphatase 366 H, Troponin I High Sens 26, Total Protein 5.3 L, Albumin 2.1 L, Globulin 3.2, Albumin/Globulin Ratio 0.7 L, Lipase 249 07/15/21 15:15: Lactic Acid 1.[address] 07/15/21 15:08 IMPRESSION: Bifrontal metastases. No acute abnormality. Electronically Signed: Inocente Christine MD at 17:24 EDT Tel , Service support , Venous Doppler Study 07/15/21 15:21 Interpretation Summary No evidence for acute deep venous thrombosis bilateral lower extremities with patent and compressible bilateral great saphenous veins. Ordering Physician: Yonathan Patel Performed By: Ki Cantu, RVT Assessment & Plan Assessment/Plan (1) Oropharyngeal cancer: (2) Failure to thrive in adult: PLAN: The patient is a 75 y/o M w/ PMHx: CAD s/p PCI, Former Tobacco use, Diabetes mellitus type II, BPH, HTN, HLD, Disseminated Oropharyngeal cancer following w/ Dr. Burk who presents to the [facility] ED on 07/15/21 per Oncology recommendation with history of recent issue with oral intake however seem to improve following esophageal dilation unfortunately at that time patient did hav e a perioperative chest x-ray that showed concerns for metastatic disease with follow-up PET scan demonstrating similarly evidence of metastases with sudden onset over the last 2 weeks generalized weakness, fatigue, increased frequent falls. #1. Failure to thrive, adult: Patient with significant decline especially since evidence recurrent cancer with metastatic disease to the liver and right hilar region, will admit to medical surgical floor, maintain on fall and aspiration precautions, request nutrition consultation given difficulties with appropriate nutrition/substance, obtain PT/OT/speech therapy/case management consultation, continue consultation with oncology as intention for possibly liver biopsy concurrently. #2. 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 CT head with evidence of metastatic disease also. Patient given Decadron load in the ED. We will continue Decadron as well as IV Keppra to be cautious. We will continue oncology consultation and requested liver biopsy per their service. Suspect likely oncology will want rad Onc involved but will await their input. #3. Severe bilateral lower extremity pitting edema: Likely secondary to #2, suspect some compression related with likely liver masses, will place snug Marty wraps and to be cautious will obtain duplex ultrasounds. #4. Severe protein calorie malnutrition: Evidenced by poor intake, weight loss, muscle and fat loss, nutrition consulted. #5. History of bladder outlet obstruction with BPH: Status post TURP, will continue Flomax and finasteride regimen. #6. CAD: Status post PCI per history, not on aspirin therapy but will hold given planned possible biopsy per oncology, not on beta-mary, MARTY inhibitor/ARB nor statin therapy. #7. Hypertension: Not on regimen, BP currently decently at goal, will hold on any regimen addition as from review of prior BPs patient does tend to be more normal range, as needed IV hydralazine if necessary. #8. Hyperlipidemia: Not on statin therapy, will hold especially given recent evidence of multiple liver metastases. #9. Reported diabetes mellitus type 2: Patient not on any regimen, will obtain hemoglobin A1c, if clears oral intake evaluation will allow ADA diet with Accu- Cheks with insulin sliding scale. #10. Former tobacco use: Encourage continued tobacco cessation. #11. DVT prophylaxis: SCD, hold chemoprophylaxis for planned liver biopsy. #12. CODE status: Patient HCPOA is his who is present and living will is currently in place. Following a lengthy discussion with patient and his , including difference between FULL code, DNR-CCA and DNR-CC status the patient and his spouse requested DNR-CCA, no intubation. Advanced Care Planning Face to Face Time: 16 minutes. Charges/Coding Visit Charges Inpatient E&M: 87764 Init Hosp L3 Procedures Hospitalists Procedures: 11271 Advncd Care Plan 30 Min
[2021-07-15 19:29] LABS: Magnesium 2.3 mg/dL (1.6-2.6); Phosphorus 2.6 mg/dL (2.5-4.9)
--- NOTE | 2021-07-15 19:47 | PCS.PANDOC ---
PANDEMIC DOCUMENTATION INITIATED: Date: 04/28/2021 Time: 190
[2021-07-15 20:29] LABS: International Normalized Ratio 1.2; Prothrombin Time (Protime)PT. 14.2 SECONDS (11.7-14.9)
[2021-07-15 20:30] LABS: Partial Thromboplast Time 28.5 Seconds (24.1-36.2)
[2021-07-15 20:38] LABS: Hemoglobin A1c 5.3 % (3.8-5.6)
[2021-07-15] MEDS: 0.9% Normal Saline 1,000 ML 100 ML IV (21:13)
[2021-07-15] MEDS: Famotidine 20 MG Tablet PO (23:03)
[2021-07-15 23:11] LABS: Bedside Glucose 108 mg/dL (70-110)
[2021-07-15] MEDS: dexAMETHasone 4 MG/ML Vial IV (23:22)
[2021-07-15] MEDS: 0.9% Saline Lock 10 ML Syringe IV (23:22)
[2021-07-16] VITALS (11 sets, daily range): BP systolic 138–144; BP diastolic 76–85; PULSE 62–92; RESP 16–18; TEMP 36.4–36.9; O2SAT 92–97
[2021-07-16 05:18] LABS: Absolute Neutrophil Count 9.7 X10^3/uL (2.0-7.7); Basophil# 0.01 X10^3/uL; Basophil% 0.1 % (0-1); Eosinophil# 0.01 X10^3/uL; Eosinophils% 0.1 % (0-5); Hematocrit 36.6 % (40-54); Hemoglobin 11.3 g/dL (13.0-16.5); Lymphocyte % 2.8 % (19-41); Mean Corp Hgb Conc 30.9 g/dL (32-36); Mean Corpuscular Hgb 26.7 pg (27.0-32.0); Mean Corpuscular Volume 86.5 fL (80-94); Mean Platelet Vol. 9.8 fl (6.2-12.0); Monocyte# 0.54 X10^3/uL; NRBC Flagged by Analyzer 0 % (0-5); Neutrophil % 90.5 % (47-70); POSITIVE DIFFERENTIAL YES; Platelet Count 150 K/mm3 (150-450); RBC Distribution Width CV 19.9 % (11.6-14.6); RBC Distribution Width SD 61.9 fl (35.1-43.9); Red Blood Count 4.23 M/mm3 (4.6-6.2); White Blood Count 10.7 K/mm3 (4.4-11.0)
[2021-07-16 05:31] LABS: Differential Indicated SCAN CRITERIA MET
[2021-07-16 05:44] LABS: ALB/GLOB Ratio 0.7 RATIO (0.9-2.4); AST(SGOT) 232 U/L (15-37); Alanine Aminotransfer ALT/SGPT 101 U/L (16-61); Alkaline Phosphatase 334 U/L (45-117); Anion Gap 7 (5-15); BUN 33 mg/dL (7-18); BUN/Creat Ratio 30.3 RATIO (10-20); Calcium,Total 8.2 mg/dL (8.5-10.1); Chloride 105 mmol/L (98-107); Creatinine, Serum 1.09 mg/dL (0.70-1.30); EST Glomerular Filtration Rate 70 mL/min (>60); Est Glom Filt Rate - Afr Amer 85 mL/min (>60); Estimated Creatinine Clearance 68.29 ml/min; Globulin 2.9 g/dL (2.2-4.2); Glucose 97 mg/dL (74-106); Potassium 3.7 mmol/L (3.5-5.1); Protein, Total 4.9 g/dL (6.4-8.2); Sodium Level 143 mmol/L (136-145)
[2021-07-16 05:56] LABS: Anisocytosis 2+; Ovalocyte 1+
[2021-07-16] MEDS: 0.9% Saline Lock 10 ML Syringe IV (06:09)
[2021-07-16] MEDS: dexAMETHasone 4 MG/ML Vial IV ×3 (06:09→17:53)
[2021-07-16 06:50] LABS: Bedside Glucose 92 mg/dL (70-110)
--- NOTE | 2021-07-16 10:39 | MRI_ITS ---
EXAM: MR HEAD WITHOUT AND WITH INTRAVENOUS CONTRAST CLINICAL INDICATION: metastatic cancer with brain mets TECHNIQUE: Multiplanar and multisequence MR images of the brain were obtained without and with intravenous contrast. This report was created using Gem report [employer] technology. CONTRAST: IV 16mL Dotarem COMPARISON: 07.15.21 ct head FINDINGS: BRAIN AND EXTRA-AXIAL SPACES: 22 mm ring enhancing lesion in the right frontal lobe. SE 13 IM: 10. Overlying cerebral edema. 15 mm ring enhancing lesion in the left frontal lobe. SE 13 IM: 11. Overlying cerebral edema. 7 mm and 11mm ring enhancing lesion in the left frontal lobe. SE 13 IM: 10. Overlying cerebral edema. 13mm ring enhancing lesion in the left medial frontal lobe. SE 13 IM: 14. Overlying cerebral edema. 10 mm ring enhancing lesion in the right basal ganglia. SE 13 IM: 15. Overlying cerebral edema. 10 mm ring enhancing lesion in the left occipital lobe. SE 13 IM: 14. Overlying cerebral edema. 8 mm ring enhancing lesion in the left occipital lobe. SE 13 IM: 17. Overlying cerebral edema. 10mm ring enhancing lesion in the right cerebellar hemisphere. SE 13 IM: 20. Overlying cerebral edema. 6 mm ring enhancing lesion in the left cerebellar hemisphere. SE 13 IM: 22. Overlying cerebral edema. No intra- or extra-axial hemorrhage. No evidence of acute infarct. No intracranial mass or mass effect. There is preservation of the boyle/white matter interface. Ventricles are appropriate for age. No hydrocephalus. Basal cisterns are patent. SELLA: Unremarkable. Normal sella turcica, pituitary gland, infundibular stalk, optic chiasm and hypothalamus. AUDITORY SYSTEM: Unremarkable. The internal auditory canals are patent. BONES/JOINTS: Unremarkable. No discrete lytic or blastic abnormalities. SINUSES: Unremarkable as visualized. Clear. MASTOID AIR CELLS: Unremarkable as visualized. Clear. ORBITS: Unremarkable as visualized. Both globes, extraocular muscles, optic nerves and retrobulbar fat appear unremarkable. VASCULATURE: Unremarkable as visualized. Normal flow voids in the major intracranial circulation. OTHER FINDINGS: 24 mm ring-enhancing lesion in the vermis. Series 13 image 18. MRI/Brain W/WO Contrast IMPRESSION: Diffuse metastatic disease to the cerebral and cerebellar hemispheres. Electronically Signed: Anshu Duggan MD at 18:21 EDT , Service support ,
[2021-07-16] MEDS: Famotidine 20 MG Tablet PO ×2 (10:46→21:02)
[2021-07-16 11:35] LABS: Bedside Glucose 159 mg/dL (70-110)
--- NOTE | 2021-07-16 12:20 | CASEMGMT ---
YULY SEGURA Face to Face with patient for initial transition planning/care coordination assessment. RN IMELDA introduced self and role at [facility]. Patient sitting in chair, alert and oriented, at bedside. Patient willing to participate in assessment and is able to answer all questions appropriately. Care providers, pharmacy, and demographics verified. Patient wishes to discharge home with HHC if able to safely go home. Patient and family willing to go to TCU if necessary. Patient states he has no further needs or concerns at this time. Patient provided with copies of HHC and SNF lists. SW updated regarding potential referral to TCU.CM to follow for discharge planning needs that may arise. PCP: Beatriz SUGGS Specialists: Festus ENT; Jeff urologist Preferred Pharmacy: [facility] Insurance: [facility] Prescription Benefit: none Living Will/HPOA: yes, Carline Alves LNOK: Living Arrangements: Patient lives with in a single floor condo with 2 steps and railing to enter. Patient was independent at home prior to current illness Transportation: DME/HHC: patient has built in shower chair, raised toilet, lift chair, and walker at home. Will monitor for need for HHC vs SNF pending progress with therapy. Disposition Plan: HHC vs TCU pending progress with therapy. Tammy PATTON, RN, CM
--- NOTE | 2021-07-16 12:41 | RAO.CON ---
Intake Vital Signs 07/15/21 13:57 07/15/21 14:31 07/15/21 16:10 07/15/21 16:45 07/15/21 18:12 07/15/21 18:12 07/15/21 18:30 07/15/21 19:47 07/15/21 19:49 07/15/21 20:06 07/15/21 20:23 07/15/21 20:25 07/16/21 00:46 07/16/21 01:45 07/16/21 01:50 07/16/21 03:02 07/16/21 06:00 07/16/21 06:35 07/16/21 07:24 07/16/21 07:55 Height 6 ft 2 in 6 ft 2 in Weight: 178 lb 179 lb 0.246 oz 179 lb 0.246 oz 179 lb 0.246 oz BMI 22.8 22.9 BP 137/77 H 150/75 H 141/82 H 140/77 H 140/77 H 136/73 H 138/77 H 142/76 H Position Semi-Fowlers Semi-Fowlers Semi-Fowlers Respiration 16 13 16 14 16 14 18 17 18 Pulse 66 71 74 76 84 82 67 73 65 64 62 71 Temp 99.2 F H 99.2 F H 98.3 F 98.0 F 97.9 F 97.8 F Pulse Oximetry (%) 93 92 95 93 94 100 96 86 93 97 97 Oxygen Flow Rate (L/min) 2 2 2 2 1 Intake Visit Reasons: FTT, METASTATIC CA Chief Complaint: F/u for Disseminated cancer. Allergies No Known Allergies Allergy (Verified 07/15/21 14:04) Medications NK 07/15/21 [History Confirmed 07/15/21] Home Medications Acetaminophen (Acetaminophen 325 Mg Tablet) 650 mg PO Q4H PRN PRN PRN Reason: Fever, pain 1-10 Al Hydroxide/Mg Hydroxide (Mag Hydrox/Al Hydrox/Simeth 30 Ml Udc) 30 ml PO Q6H PRN PRN PRN Reason: Gastric Burning Albuterol Sulfate (Albuterol 2.5 Mg/3 Ml Vial.Neb.) 2.5 mg INHALATION Q2H PRN PRN PRN Reason: Dyspnea, wheezing Dexamethasone Sodium Phosphate (Dexamethasone 4 Mg/Ml Vial) 4 mg IV Q6 KIT Last Admin: 07/16/21 11:21 Dose: 4 mg Documented by: Famotidine (Famotidine 20 Mg Tablet) 20 mg PO BID [facility] Last Admin: 07/16/21 10:46 Dose: 20 mg Documented by: Guaifenesin (Guaifenesin 10 Ml Udc (200mg/10ml)) 20 ml PO Q4H PRN PRN PRN Reason: COUGH Hydralazine HCl (Hydralazine 20 Mg/Ml Vial) 10 mg IV Q4H PRN PRN PRN Reason: SBP > 160 Levetiracetam 500 mg/ Sodium (Chloride) 105 mls @ 400 mls/hr IV Q12 [facility] Last Infusion: 07/16/21 11:04 Dose: Infused Documented by: Sodium Chloride () 1,000 mls @ 100 mls/hr IV .Q10H [facility] Last Infusion: 07/16/21 07:13 Dose: Infused Documented by: Sodium Chloride () 250 mls @ 15 mls/hr IV .[id number] PRN PRN Reason: Saline Flush Insulin Human Lispro (Insulin Lispro 100 Unit/Ml Insuln.Pen) 0 unit SC [facility]; Protocol Last Admin: 07/16/21 06:40 Dose: Not Given Documented by: Magnesium Hydroxide (Magnesium Hydroxide 30 Ml Udc) 30 ml PO DAILY PRN PRN PRN Reason: Constipation Melatonin (Melatonin 3 Mg Tablet) 3 mg PO QHS PRN PRN PRN Reason: INSOMNIA Ondansetron HCl (Ondansetron 4 Mg/2 Ml Vial) 4 mg IV Q8H PRN PRN PRN Reason: NAUSEA/VOMITING Prochlorperazine Edisylate (Prochlorperazine 10 Mg/2 Ml Vial) 5 mg IV Q4H PRN PRN PRN Reason: Breakthrough Nausea/Vomiting Psyllium Hydrophilic Mucilloid (Psyllium 1 Packet) 1 packet PO DAILY PRN PRN PRN Reason: Constipation Senna/Docusate Sodium (Senna/Docusate Sodium 1 Tablet) 2 tablet PO BID PRN PRN PRN Reason: Constipation Sodium Chloride (0.9% Saline Lock 10 Ml Syringe) 10 - 40 ml IV UD PRN PRN Reason: SALINE FLUSH Last Admin: 07/16/21 06:09 Dose: 10 ml Documented by: Throat Lozenges (Benzocaine/Menthol 1 Lozenge) 1 lozenge MUCOUS MEM Q2H PRN PRN PRN Reason: SORE THROAT PFSH PFSH Medical History (Updated 07/16/21 @ 12:[address] Freddy Rock, DO) BPH with obstruction/lower urinary tract symptoms CAD (coronary artery disease) Diabetes History of heart attack (~2014) Kidney stones Oropharyngeal cancer Smoker Wears dentures Wears glasses Wears hearing aid Home Medications NK 07/15/21 [History Last Taken Unknown] Allergy/AdvReac Type Severity Reaction Status Date / Time No Known Allergies Allergy Verified 07/15/21 14:04 Family History Father Alzheimer disease Mother Breast cancer Surgical History (Updated 07/15/21 @ 20:[address] Leonie Sanchez MD) History of back surgery History of partial knee replacement (~2004) Hx of neck surgery Hx of tonsillectomy S/P angioplasty with stent S/P TURP Social History (Updated 07/15/21 @ 20:[address] Leonie Sanchez MD) household members: spouse Smoking Status: Former smoker how long ago did patient quit smoking: Intermittent cigar smoking, 1-2/day since youth. 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 01/12/2017) who now has right hilar and mediastinal adenopathy, right lung lesion, diffuse metastatic disease throughout the liver, and at least two solitary brain metastases s/p CT chest (06/26/2021), PET scan (07/08/2021), CT brain (07/15/2021). History of Present Illness: 11/09/2016 ? 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 Missed 1 week of treatment due to neutropenia. 04/05/2017: PET scan was performed which demonstrated residual activity in the right level 2 lymph node. He underwent right neck dissection and then began observation. 09/09/2017: PET scan was performed demonstrated no evidence of viable neoplastic disease. 03/21/2018: PET scan was performed which demonstrated no evidence of viable neoplastic disease. 02/27/2020: PET scan was performed which demonstrated some increased glucose metabolism observed in the right prostate gland, it may be further investigated with MRI. No other evidence of disease is appreciated. 06/26/2021: CT chest with contrast was performed. This demonstrated evidence for right hilar adenopathy and multiple lesions within the imaged portions of the liver consistent with metastatic disease. There is a right upper lobe pulmonary nodule presumably metastatic disease though cannot exclude a secondary primary. 07/08/2021: PET scan was performed. This demonstrated newly identified increased FDG distribution defined the left anterior neck involving level 4 with a calculated maximum SUV of 2.7 and a lesion size of 1.3 cm. There is increased distribution noted within the mediastinum and right thoracic perihilum with a calculated maximum SUV of 7.6 with the largest area of abnormality measuring at 4.4 cm. There are innumerable foci of increased radiopharmaceutical manifest throughout the left and right lobe of an enlarged liver. There is increased uptake observed in the right posterior first rib, 6 thoracic vertebra, right sacral ala, right acetabulum, posterior sacrum at midline. All of these findings are consistent with viable neoplastic disease. 07/15/2021: CT brain with and without contrast was performed. This demonstrated a ring-enhancing metastasis measuring 1.4 cm in the left frontal lobe and 2 cm in the right frontal lobe. There is evidence for some surrounding vasogenic edema. No midline shift, hydrocephalus or herniation. No osseous lesions are identified. Radiation Treatment History: 1) 11/09/2016 ? 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 Missed 1 week of treatment due to neutropenia. Received 35 fractions per patient but no records available for review. Interval History: Patient was seen in the hospital as an inpatient consultation. Much of the history is gained from his who is also present as he has had some cognitive decline in the last couple of weeks to months. In addition to the mental decline he has had weight loss but no apparent change in appetite or nutritional intake. Weight loss has been at least 20 pounds over the last couple of months. He has complained occasionally of mild headaches although this has not been consistent and he has not had any nausea/vomiting. He denies odynophagia or dysphagia. He has thinning of his neck related to prior surgery and radiation therapy for his head and neck cancer. He is edentulous without pain in his mouth or oropharynx. He does have a muffled voice at baseline since this prior treatment. He has a history of chronic smoking of 1 pack/day for 40-50 years and quit in 2017. He denies cough, shortness of breath, chest pain, hemoptysis. Over the last couple of weeks he has had increased failure to thrive and has stopped being able to ambulate requiring much assistance from his , this led then to come into the emergency room for evaluation. Also over the last week to 2 weeks he has had increase in edema involving the bilateral lower extremities below the knee. He denies having seizures, focal weakness/numbness, incoordination. Other than occasional headache he denies having other pain including bone pain or abdominal pain. He denies having jaundice or color change to his stool. He reports well-formed stools without diarrhea at this time. He denies having other problems or concerns at this time. Review of Systems: A 12-point review of systems was completed and was negative except for what is noted in the HPI/Interval History and by the nurse. Physical Exam: Weight: 179 lbs ECO KARNOFSKY SCORE: 50% CONSTITUTIONAL: Well-developed, well-nourished, and in no apparent distress. HEENT: Mucous membranes moist. No evidence of thrush or lesions within the visualized oropharynx or oral cavity. Telangiectasia present involving the oropharynx. Edentulous. No trismus. Pupils are equal, round, and reactive to light and accommodation. Extraocular movements are intact. Sclerae are anicteric. NECK: Neck thinning and tightness, mildly reduced neck ROM. No thyromegaly, and non-tender. Trachea midline. No cervical or supraclavicular adenopathy noted. CARDIAC: Regular rate and rhythm. Normal S1, S2. No murmurs, rubs, or gallops. PULMONARY/CHEST: Lungs are clear to auscultation and percussion bilaterally. No wheezes, rhonchi, or crackles noted. No increased work of breathing. ABDOMINAL: Abdomen soft, non-tender, non-distended. No hepatomegaly. Normoactive bowel sounds in all four quadrants. No guarding, rebound. BACK: Straight and aligned. No CVA tenderness. Axial skeleton non-tender to percussion. EXTREMITIES: Full range of motion in all four extremities. 2-3+ bilateral LE edema below the knee. NEUROLOGICAL EXAM: Answers questions and follows commands appropriately. Cranial nerves II through XII are grossly intact. No focal neurological deficit. Speech is fluent. Muscle strength is 5/5 in all muscle groups. Gait and posture without abnormality. PSYCHIATRIC: Appropriate mood and affect for the clinical situation. Imaging: As per HPI Laboratory Data: 07/16/2021: ANC 9.7, bilirubin 1.6, AST 232, ALT 101, alk phos 334, albumin 2.0. 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 01/12/2017) who now has right hilar and mediastinal adenopathy, right lung lesion, diffuse metastatic disease throughout the liver, and at least two solitary brain metastases s/p CT chest (06/26/2021), PET scan (07/08/2021), CT brain (07/15/2021). Plan: Patient was seen in the hospital as an inpatient consultation. He presented to the hospital due to continued medical/physical decline and failure to thrive. I reviewed the imaging studies including CT chest/abdomen from 06/26/2021, PET scan from 07/08/2021, and CT brain from 07/15/2021. This demonstrates evidence for viable neoplasm within the right lung and mediastinum, diffusely involving the liver and resulting in liver enlargement and abnormal liver function tests, and 2 lesions within the brain measuring 2 and 1.4 cm. Brain MRI is pending to further evaluate for other brain metastases. 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 He is planning to have a biopsy of the liver completed tomorrow to determine the primary origin of his tumor. He does have significant smoking history and given that his head and neck treatment was about 4 years ago seems more consistent with a second primary likely originating in the lung. I reviewed that this is very likely to be stage IV cancer either originating from the lung or the head and neck but the biopsy will help to fully determine that. I reviewed that for stage IV cancer likely his mainstay of therapy will be systemic therapy as guided by medical oncology. I reviewed reasons to consider radiation therapy and the clinical scenario of stage IV disease and typically this would include for palliative reasons. Specifically I did discuss the use of FSRT and whole brain radiation therapy for brain metastases. I explained that FSRT is typically utilized as it provides very high degree of local disease control without significant risk of toxicity and that whole brain radiation therapy due to its toxicity risk is reserved for last resort. Given the great extent of disease within his liver already affecting his liver function tests I also reviewed the option of hospice as I think this would also be very reasonable. He does not have a performance as that that would likely allow for chemotherapy and if he doesn't have any reasonable systemic therapy options then I believe hospice is most appropriate. I reviewed that if systemic therapy can be completed then potentially this should be initiated more urgently given his liver disease with the use of focal brain FSRT between chemotherapy or systemic therapy cycles. If FSRT is completed then I reviewed this will have to be completed at a different facility as we do not currently offer brain FSRT and he will likely go to [place] if this option is selected. If no systemic treatment options are available then short course whole brain radiation therapy may be an option for palliative goals but given his likely limited life expectancy this will likely cause more toxicity than benefit and unless a reasonable systemic therapy plan is in place probably not worth completing this treatment. I reviewed the logistics of both fracture RT and whole brain radiation therapy and also reviewed the potential short and long-term toxicities. Patient and his were given a chance to ask all questions which I addressed to the best my ability. I plan to rediscuss these potential options once the brain MRI is completed and also plan to review with medical oncology to see if there is any chance for systemic therapy once the biopsy is completed. In the meantime agree with Decadron to reduce ST[employer] TECH[employer]ICIAN swelling. Thank you for allowing me to participate in the management and care of your patient. If I may answer any questions in the interim, please do not hesitate to contact me at any time. Freddy Rock DO, MS Cmm Inspector, Department of Radiation Oncology [facility] Coding Level of Care Code Off vis,new,level 5 Diagnoses Metastatic cancer C79.31 Area of secondary neoplastic involvement: nervous system structure Nervous system structure secondary neoplasm location: metastatic to brain
--- NOTE | 2021-07-16 13:04 | CASEMGMT ---
Addendum entered by Stephanie James 07/16/21 15:56: Social Work Return call from Siobhan in TCU and they are able to accept pt if he is unable to return home. RIMA Szymanski Original Note: Social Work RNCM updated SW that pt would like to return home, but if not able he would prefer TCU. Referral to TCU and they do have a bed available. SW will await return call from TCU for ability to accept. NED will continue to follow. RIMA Szymanski
[2021-07-16] MEDS: Insulin Lispro 100 UNIT/ML INSULN.PEN SC ×2 (14:43→21:01)
[2021-07-16] MEDS: 0.9% Normal Saline 1,000 ML 100 ML IV (14:43)
--- NOTE | 2021-07-16 15:52 | PN.HOSP_ITS ---
Subjective Subjective Patient seen and examined. HE was admitted via the ED after being referred by his oncologist o/a of worsening severe weakness. He had deteriorated markedly over 2 weeks prior to admission, to the point where he couldnt even get up out of a chair. He has a history of metastatic oropharyngeal cancer. Patient seen today. He looked comfortable and had no active complaints. I must say that patient was quite hard to understand when he spoke, so unable to do comprehensive review of systems. He has remained hemodynamically stable. Objective Data Objective Data Vital Signs: Vital Signs Temp Pulse Resp BP Pulse Ox 97.9 F 91 18 138/76 H 96 07/16/21 12:35 07/16/21 14:00 07/16/21 12:35 07/16/21 12:35 07/16/21 12:35 Oxygen Flow Rate (L/min) 1 Oxygen Delivery Method Room Air Weight: 179 lb 0.246 oz Body Mass Index (BMI) 22.9 Intake & Output: Intake and Output for Last 24 Hours 07/14/21 07/15/21 07/16/21 23:59 23:59 23:59 Intake Total 531.67 / 531.67 828.33 / 828.33 Output Total 300 / 300 225 / 225 Balance 231.67 / 231.67 603.33 / 603.33 Lab / Micro Data Result Diagrams: 07/16/21 04:48 07/16/21 04:48 Labs: Laboratory Results - last 24 hr 07/15/21 15:15: WBC 13.3 H, RBC 4.30 L, Hgb 11.6 L, Hct 37.1 L, MCV 86.3, MCH 27.0, MCHC 31.3 L, RDW Std Deviation 60.8 H, RDW Coeff of Rocky 19.9 H, Plt Count 173, MPV 9.8, Immature Gran % (Auto) 1.400 H, Neut % (Auto) 90.9 H, Lymph % (Auto) 2.1 L, Dunn % (Auto) 5.4, Eos % (Auto) 0.0, Baso % (Auto) 0.2, Absolute Neuts (auto) 12.1 H, Absolute Lymphs (auto) 0.28 L, Nucleated RBC % 0, Differential Comment SCANNED 07/15/21 15:15: PT 14.0, INR 1.1 07/15/21 15:15: Sodium 141, Potassium 3.6, Chloride 106, Carbon Dioxide 30.0, An ion Gap 5, BUN 35 H, Creatinine 1.13, Estim Creat Clear Calc 65.50, Est GFR ( MDRD) Af Amer 81, Est GFR (MDRD) Non-Af 67, BUN/Creatinine Ratio 31.0 H, Glucose 75, Calcium 8.2 L, Total Bilirubin 1.70 H, AST 237 H, ALT 111 H, Alkaline Phosphatase 366 H, Troponin I High Sens 26, Total Protein 5.3 L, Albumin 2.1 L, Globulin 3.2, Albumin/Globulin Ratio 0.7 L, Lipase 249 07/15/21 15:15: Lactic Acid 1.9 07/15/21 15:15: Phosphorus 2.6, Magnesium 2.3 07/15/21 20:03: PT 14.2, INR 1.2, APTT 28.5 07/15/21 20:03: Hemoglobin A1c 5.3 07/15/21 23:07: POC Glucose 108 07/16/21 04:48: WBC 10.7, RBC 4.23 L, Hgb 11.3 L, Hct 36.6 L, MCV 86.5, MCH 26.7 L, MCHC 30.9 L, RDW Std Deviation 61.9 H, RDW Coeff of Rocky 19.9 H, Plt Count 150, MPV 9.8, Immature Gran % (Auto) 1.500 H, Neut % (Auto) 90.5 H, Lymph % (Auto) 2.8 L, Dunn % (Auto) 5.0, Eos % (Auto) 0.1, Baso % (Auto) 0.1, Absolute Neuts (auto) 9.7 H, Absolute Lymphs (auto) 0.30 L, Nucleated RBC % 0, Anisocytosis 2+, Ovalocytes 1+ 07/16/21 04:48: Sodium 143, Potassium 3.7, Chloride 105, Carbon Dioxide 31.0, Anion Gap 7, BUN 33 H, Creatinine 1.09, Estim Creat Clear Calc 68.29, Est GFR (MDRD) Af Amer 85, Est GFR (MDRD) Non-Af 70, BUN/Creatinine Ratio 30.3 H, Glucose 97, Calcium 8.2 L, Total Bilirubin 1.60 H, AST 232 H, ALT 101 H, Alkaline Phosphatase 334 H, Total Protein 4.9 L, Albumin 2.0 L, Globulin 2.9, Albumin/Globulin Ratio 0.7 L 07/16/21 06:39: POC Glucose 92 07/16/21 11:23: POC Glucose 159 H Radiography Diagnostic Testing: Radiology Impression Brain CT 07/15/21 15:08 IMPRESSION: Bifrontal metastases. No acute abnormality. Electronically Signed: Inocente Christine MD at 17:24 EDT Tel , Service support , Venous Doppler Study 07/15/21 15:21 Interpretation Summary No evidence for acute deep venous thrombosis bilateral lower extremities with patent and compressible bilateral great saphenous veins. Ordering Physician: Yonathan Patel Performed By: Ki Cantu RVT Physical Exam Const alert, oriented x3 and no apparent distress Constitutional Narrative: looks frail. Exam Limitations: no limitations HEENT head/scalp atraumatic and moist oral mucous membranes Head and Scalp: normocephalic Mouth: dry mucous membranes Eyes PERRL, EOMs intact bilaterally and conjunctivae normal Neck no lymphadenopathy Resp Resp Narrative: diminished breath sounds bibasally, no wheezes or crackles. On room air Cardio regular rate, regular rhythm, S1 normal heart sound, S2 normal heart sound and no murmurs GI GI Narrative: abdomen markedly distended, massive hepatosplenomegaly. No tenderness or guarding or rebound tenderness. Assessment & Plan Assessment/Plan (1) Metastatic cancer: QUALIFIERS: Area of secondary neoplastic involvement: nervous system structure Nervous system structure secondary neoplasm location: metastatic to brain Qualified Code(s): C79.31 - Secondary malignant neoplasm of brain (2) Failure to thrive in adult: PLAN: #Metastatic oropharyngeal cancer * diagnosed with cancer ~ 4 years ago and is s/p chemoradiation and surgery. * started having trouble swallowing 2 weeks ago, which was thought to be due to radiation. CT chest done prior to planned dilatation showed a mass in his chest. He did have the dilatation done and had been eating and drinking but has also had about a 20 pound weight loss with associated lower extremity swelling. * CT of the abdomen done on account of worsening lower extremity swelling showed enlarged liver with multiple metastatic masses. * CT of the brain done showed bifrontal metastasis showed ring-enhancing metastasis in the left frontal lobe approximately 1.4 cm with some surrounding vasogenic edema. * Oncology on board. Radiation oncology also consulted and MRI of the brain ordered. * PT OT on board. Fall precautions. * On IV Decadron * Also on IV Keppra for seizure prophylaxis * #Failure to thrive due to metastatic oropharyngeal cancer * As above. Nutrition also consulted as patient is also malnourished. * #CAD: S/p PCI: Also does not appear to be on any medication right now. #Type 2 diabetes mellitus: Appears to be diet controlled.he is not on any me dication. #Hyperlipidemia: Not on statin therapy. DVT prophylaxis: SCDs #GI prophylaxis: Famotidine Charges/Coding Visit Charges Inpatient E&M: 29431 Subs Hosp L3
[2021-07-16 18:06] LABS: Bedside Glucose 132 mg/dL (70-110)
[2021-07-16 21:21] LABS: Bedside Glucose 152 mg/dL (70-110)
[2021-07-17] VITALS (10 sets, daily range): BP systolic 131–144; BP diastolic 66–94; PULSE 69–90; RESP 16–18; TEMP 36.4–36.7; O2SAT 90–96
--- NOTE | 2021-07-17 | IMM_PTH ---
PATIENT: SANTINO HINOJOSA LOC: MS2 U#:[id number] AGE/SX: 75/M ROOM: [facility] [place] RE07/15/[address]: Dr. Cyndee Ramirez MD : 1945 BED: 1 DIS: 07/21/2021 SPEC #: [id number] RECD: 07/21/21 14:36 STATUS: KASIA REQ #: [id number] DANIEL: 07/17/21 00:[address]: Natasha Gutpa DEPT: IMMUNOHISTOCHEMISTRY RECD BY: Sandi Adams ENTERED: 07/21/21 14:37 SP TYPE: IMMUNO OTHR DR: Elsy George, SELF PAY SPECIALIST-C MD Dr. Leonie Mercado MD Dr. David R Lance, DO Dr. Jodi Hannan, MD Dr. Joseph Prah, MD Dr. Steve Walston, DO Carolyn Graham, SELF PAY SPECIALIST-C Arabella Gupta, SELF PAY SPECIALIST-C Tamiko Yousif, SELF PAY SPECIALIST-C ES Min Tissues: Liver, NOS Procedures: Synapto (add) CD45 (add) CD56 (add) CHROMO (add) CK20 (add) CK7 (add) CK8 (add) KI-67 (add) TTF1 (add) Pankeratin (initial) PHYSICIAN & [place] [id number] SPECIMEN INFORMATION: Tissue Source: Liver, CT-guided biopsy Clinical Info: Liver mets Specimen Number: [id number] CPT code: 45680, 47411 x9 METHODOLOGY: Deparaffinized sections of prefer/formalin-fixed tissue or PAP/DQ stained slides are incubated with monoclonal/polyclonal antibodies/oligonucleotide probes. Localization is made via biotin free immunoperoxidase method. Appropriate controls are performed and reacted as expected. Results on target cell population are indicated in the following table: RESULTS: ANTIBODY / CLONE RESULT AE1-3 (AE1/AE3/PCK26) positive CK7 (OV-TL12/30) positive CK8 (45ulekC71) positive CK20 (KS20.8) negative CD45 (RP2/18) negative CD56 (123C3.D5) positive Chromo (LK2H10) positive Synapto (polyclonal) positive TTF-1 (8G7G3/1) positive Ki-67 (30-9) positive, high (~60%) These tests were developed and their performance characteristics determined by [facility]. They may not have been cleared or approved by the U.S. Food and Drug Administration. The FDA has determined that such clearance or approval is not necessary. The above immunohistochemical/dualISH markers are ordered and reviewed by the Pathologist. INTERPRETATION: Liver, CT-guided biopsy: Consistent with metastatic high-grade neuroendocrine carcinoma. SJ:jimmy 07/22/2021
--- NOTE | 2021-07-17 | ASPIGT_PTH ---
PATIENT: SANTINO HINOJOSA LOC: MS2 U#:[id number] AGE/SX: 75/M [place] [facility] [place]: Dr. Cyndee Ramirez MD : 1945 BED: 1 DIS: 07/21/2021 SPEC #: [id number] RECD: 07/18/21 11:16 STATUS: KASIA DONOVAN #: [id number] DANIEL: 07/17/21 00:[address]: Natasha Gupta DEPT: SURGICAL PATHOLOGY RECD BY: Wesley Tiwari ENTERED: 07/18/21 11:17 SP TYPE: ASP RAD OTHR DR: MD Dr. Eitan Aguila MD Dr. 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 See comment. MIC:jimmy 07/21/2021 COMMENT The specimen is evaluated at the time of biopsy by Dr. Mo. Immediate Evaluation: Set 1 ? Necrotic cells noted (6 imprints). Set 2 ? 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 Immunohistochemistry ([id number]) supports the above diagnosis. Case has been reviewed in consultation with Dr. Gar who concurs with the above diagnosis. IDC:AM MICROSCOPIC DESCRIPTION Slides are reviewed. GROSS DESCRIPTION Received in fixative is one container labeled with the patient's name and designated liver, CT-guided core biopsy. The specimen consists of multiple elongated fragments of akins soft tissue that in aggregate measure 1.5 x 0.5 x 0.1 cm. The specimen is totally submitted in one cassette. Eight touch imprints are prepared at the time of core biopsy. / MIC:jimmy 07/18/21 TC:0 CPT: 12786, 05457
--- NOTE | 2021-07-17 | FLU_PTH ---
PATIENT: SANTINO HINOJOSA LOC: MS2 U#:[id number] AGE/SX: 75/M ROOM: [facility] [place]07/15/[address]: Dr. Cyndee Ramirez MD : 1945 BED: 1 DIS: 07/21/2021 SPEC #: [id number] RECD: 07/18/21 11:17 STATUS: KASIA REBelinda #: [id number] DANIEL: 07/17/21 00:[address]: Natasha Gupta DEPT: CYTOLOGY RECD BY: Wesley Tiwari ENTERED: 07/18/21 11:17 SP TYPE: Fluid OTHR DR: MD Dr. Eitan Aguila MD Dr. Steve Walston, DO Rebecca Bean, PA Tissues: Liver, NOS Procedures: Special Stain Group II Surgery Specimen Level IV Cytospin Fluid HEADER OPERATION: CT-guided liver biopsy PRE-OP DIAGNOSIS: Liver mets TISSUE SUBMITTED: Left lobe liver fluid for cytology 18-gauge core x8 DIAGNOSIS CYTOLOGY Left lobe liver fluid for cytology (cytospin and cell block): Predominantly necrotic cellular debris with rare degenerative malignant cells suspicious for high-grade neuroendocrine carcinoma. See comment. MIC:jimmy 07/21/2021 COMMENT Please make reference to corresponding surgical specimen ([id number]) left lobe liver, CT-guided core biopsy with diagnosis of ?consistent with metastatic high-grade neuroendocrine carcinoma.? Case has been reviewed in consultation with Dr. Gar who concurs with the above diagnosis. IDC:AM CYTOLOGY STUDY Slides are reviewed. CYTOLOGY GROSS Received is 5 ml of pink cloudy fluid labeled with the patient's name and and designated per the requisition as liver. Submitted for cytology preparation including cell block. / jimmy 07/18/2021 TC:5 CPT: 88443, 70092
[2021-07-17] MEDS: dexAMETHasone 4 MG/ML Vial IV ×4 (01:40→18:02)
[2021-07-17 06:45] LABS: Bedside Glucose 103 mg/dL (70-110)
[2021-07-17 08:33] LABS: Absolute Neutrophil Count 9.3 X10^3/uL (2.0-7.7); Basophil# 0.01 X10^3/uL; Basophil% 0.1 % (0-1); Hematocrit 42.3 % (40-54); Hemoglobin 13.3 g/dL (13.0-16.5); Mean Corp Hgb Conc 31.4 g/dL (32-36); Mean Corpuscular Hgb 27.1 pg (27.0-32.0); Mean Corpuscular Volume 86.2 fL (80-94); Mean Platelet Vol. 10.3 fl (6.2-12.0); Monocyte# 0.24 X10^3/uL; Monocyte% 2.4 % (0-10); NRBC Flagged by Analyzer 0 % (0-5); Neutrophil % 94.8 % (47-70); POSITIVE DIFFERENTIAL YES; POSITIVE MORPHOLOGY YES; Platelet Count 177 K/mm3 (150-450); RBC Distribution Width CV 20.2 % (11.6-14.6); RBC Distribution Width SD 61.5 fl (35.1-43.9); Red Blood Count 4.91 M/mm3 (4.6-6.2); White Blood Count 9.8 K/mm3 (4.4-11.0)
[2021-07-17 08:36] LABS: Differential Indicated SCAN CRITERIA MET
[2021-07-17 08:52] LABS: ALB/GLOB Ratio 0.7 RATIO (0.9-2.4); AST(SGOT) 224 U/L (15-37); Alanine Aminotransfer ALT/SGPT 109 U/L (16-61); Albumin, Serum 2.3 g/dL (3.2-5.0); Alkaline Phosphatase 379 U/L (45-117); Anion Gap 8 (5-15); BUN 30 mg/dL (7-18); BUN/Creat Ratio 28.6 RATIO (10-20); Calcium,Total 8.7 mg/dL (8.5-10.1); Chloride 104 mmol/L (98-107); Creatinine, Serum 1.05 mg/dL (0.70-1.30); EST Glomerular Filtration Rate 73 mL/min (>60); Est Glom Filt Rate - Afr Amer 89 mL/min (>60); Estimated Creatinine Clearance 70.89 ml/min; Globulin 3.4 g/dL (2.2-4.2); Glucose 115 mg/dL (74-106); Potassium 3.6 mmol/L (3.5-5.1); Protein, Total 5.7 g/dL (6.4-8.2); Sodium Level 141 mmol/L (136-145)
[2021-07-17 09:21] LABS: Differential Comment SCANNED
[2021-07-17 09:22] LABS: Anisocytosis 2+; Macrocytosis 1+; Microcytosis 1+
[2021-07-17] MEDS: 0.9% Normal Saline 1,000 ML 100 ML IV (10:50)
--- NOTE | 2021-07-17 11:16 | PN.HOSP_ITS ---
Subjective Subjective Patient seen and examined. He was sitting up eating breakfast. He had no active complaints. Review of systems otherwise negative. He is due for liver biopsy today. Objective Data Objective Data Vital Signs: Vital Signs Temp Pulse Resp BP Pulse Ox 98.0 F 90 18 131/66 H 90 07/17/21 09:14 07/17/21 09:14 07/17/21 09:14 07/17/21 09:14 07/17/21 09:14 Oxygen Flow Rate (L/min) 1 Oxygen Delivery Method Room Air Weight: 179 lb 0.246 oz Body Mass Index (BMI) 22.9 Intake & Output: Intake and Output for Last 24 Hours 07/15/21 07/16/21 07/17/21 23:59 23:59 23:59 Intake Total 531.67 / 531.67 1566.66 / 1566.66 516.67 / 516.67 Output Total 300 / 300 225 / 225 600 / 600 Balance 231.67 / 231.67 1341.66 / 1341.66 -83.33 / -83.33 Medical Nutrition Assessment Dietitian: Malnutrition Criteria Met Start: 07/16/21 15:34 Freq: Status: Active Protocol: Document 07/16/21 16:12 RMA (Rec: 07/16/21 16:12 RMA [id number]) Nutrition Malnutrition Evidence of Malnutrition Exists Yes Malnutrition (severe): Chronic Evidenced By Suboptimal Energy Intake ( Severe),Weight Loss (Severe), Physical Changes (Severe) Clinical Problem Chronic Disease or Condition Related Malnutrition Etiology Severe protein/calorie malnutrition in the context of chronic disease related to cancer with metastasis and increased energy expenditure Signs/Symptoms as evidenced by ~10-12% wt loss x past 4-6 months, +NFPA with visible muscle and fast wasting in the face, clavicle, arms and upper body and PO meeting less than 50% increased nutrition needs for repletion Status Active Problem Recommendation Dietitian Recommendations/Changes Will liberalize diet to regular/no added salt. Will add vanilla ensure pudding BID w/ lunch and dinner. Will add orange magic cup w/ lunch and dinner. Will add vanilla ensure compact w/ breakfast. Lab / Micro Data Result Diagrams: 07/17/21 08:04 07/17/21 08:04 Labs: Laboratory Results - last 24 hr 07/16/21 11:23: POC Glucose 159 H 11/03/21 17:49: POC Glucose 132 H 07/16/21 21:00: POC Glucose 152 H 07/17/21 06:38: POC Glucose 103 07/17/21 08:04: WBC 9.8, RBC 4.91, Hgb 13.3, Hct 42.3, MCV 86.2, MCH 27.1, MCHC 31.4 L, RDW Std Deviation 61.5 H, RDW Coeff of Rocky 20.2 H, Plt Count 177, MPV 10.3, Immature Gran % (Auto) 0.700, Neut % (Auto) 94.8 H, Lymph % (Auto) 2.0 L, Fisher % (Auto) 2.4, Eos % (Auto) 0.0, Baso % (Auto) 0.1, Absolute Neuts (auto) 9.3 H, Absolute Lymphs (auto) 0.20 L, Nucleated RBC % 0, Differential Comment SCANNED, Anisocytosis 2+, Microcytosis 1+, Macrocytosis 1+ 07/17/21 08:04: Sodium 141, Potassium 3.6, Chloride 104, Carbon Dioxide 29.0, Anion Gap 8, BUN 30 H, Creatinine 1.05, Estim Creat Clear Calc 70.89, Est GFR (MDRD) Af Amer 89, Est GFR (MDRD) Non-Af 73, BUN/Creatinine Ratio 28.6 H, Glucose 115 H, Calcium 8.7, Total Bilirubin 1.90 H, AST 224 H, ALT 109 H, Alkal ine Phosphatase 379 H, Total Protein 5.7 L, Albumin 2.3 L, Globulin 3.4, Albumin/Globulin Ratio 0.7 L Radiography Diagnostic Testing: Radiology Impression Brain MRI 07/16/21 10:39 IMPRESSION: Diffuse metastatic disease to the cerebral and cerebellar hemispheres. Electronically Signed: Anshu Duggan MD at 18:21 EDT , Service support , Physical Exam Const alert, oriented x3 and no apparent distress Constitutional Narrative: looks frail. Exam Limitations: no limitations HEENT head/scalp atraumatic and moist oral mucous membranes Head and Scalp: normocephalic Eyes PERRL, EOMs intact bilaterally and conjunctivae normal Neck no lymphadenopathy Resp Resp Narrative: diminished breath sounds bibasally, no wheezes or crackles. On room air Cardio regular rate, regular rhythm, S1 normal heart sound, S2 normal heart sound and no murmurs GI GI Narrative: abdomen markedly distended, massive hepatosplenomegaly. No tenderness or guarding or rebound tenderness. 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 * CT of the abdomen done on account of worsening lower extremity swelling showed enlarged liver with multiple metastatic masses. * CT of the brain done showed bifrontal metastasis showed ring-enhancing metastasis in the left frontal lobe approximately 1.4 cm with some surrounding vasogenic edema. * MRI of the brain showed diffuse metastatic disease to the cerebral and cerebellar hemispheres. * Oncology on board. Radiation oncology on board. * PT OT on board. Fall precautions. * On IV Decadron * Also on IV Keppra for seizure prophylaxis * for liver biopsy today * #Failure to thrive due to metastatic oropharyngeal cancer * As above. Nutrition also consulted as patient is also malnourished. * #Elevated liver enzymes * total bilirubin is 1.9. AST and ALT are elevated at 224/109 and ALP is 379. * getting a liver biopsy today. this is all likely due to metastatic cancer with liver mets. * #CAD: S/p PCI: Also does not appear to be on any medication right now. #Type 2 diabetes mellitus: Appears to be diet controlled.he is not on any me dication. #Hyperlipidemia: Not on statin therapy. DVT prophylaxis: SCDs #GI prophylaxis: Famotidine Charges/Coding Visit Charges Inpatient E&M: 17343 Subs Hosp L3
--- NOTE | 2021-07-17 11:22 | CASEMGMT ---
Social Work SW met with pt outside of the room as pt was sleeping. Pt with new cancer diagnosis. Extensive conversation and support provided to pt . SW also reviewed discharged options. Explaining that TCU can accept pt if he is not on chemo. Also talked about hospice services and home health. is appreciative of information and plans to talk to nurse and physician more today and help pt make decisions on care going forward. Pt states she has a good support system and is able to take off work to care for pt when he returns home. No discharge disposition has been established at this time. SW will remain available for support and d/c planning. RIMA Szymanski
[2021-07-17 11:51] LABS: Bedside Glucose 113 mg/dL (70-110)
--- NOTE | 2021-07-17 12:21 | CASEMGMT ---
YULY SEGURA NOTE: Pt qualifies for a Palliative referral per the [facility] palliative screening tool at this time. Dr Gupta aware and states ok for Palliative c/s at this time. Order placed. [place] @ Palliative updated at this time. Face Sheet faxed to Palliative at this time. Tyree PATTON RN CM
[2021-07-17] MEDS: 0.9% Saline Lock 10 ML Syringe IV ×2 (13:28→18:02)
--- NOTE | 2021-07-17 16:11 | SP.MBSS_ITS ---
Modified Barium Swallow - Patient Information Study Date: 07/17/21 Study Time: 14:00 Direct Billable Minutes: 150 Total Minutes procedure & reportin Diagnosis: Metastatic Cancer Referring Physician: Natasha Gupta Reason for Referral: Suspected dysphagia; extensive hx of oropharyngeal cancer Medical History: The patient is a 75 y/o M w/ PMHx: CAD s/p PCI, Former Tobacco use, Diabetes mellitus type II, BPH, HTN, HLD, Disseminated Oropharyngeal cancer following w/ Dr. Burk who presents to the [facility] ED on 07/15/21 per Oncology recommendation with history of recent issue with oral intake however seem to improve following esophageal dilation unfortunately at that time patient did have a perioperative chest x-ray that showed concerns for metastatic disease with follow-up PET scan demonstrating similarly evidence of metastases with sudden onset over the last 2 weeks generalized weakness, fatigue, increased frequent falls, unable to even get out of a chair and required usage of a lift chair prompting family to eventually bring him to the ED for evaluation. Work-up in the ED included T 99.2, heart rate 66, BP 137/77, respiratory rate 16, 92 to 93% on room air, CBC with WBC 13.3, hemoglobin 11.6, platelet 173 with left shift and lymphopenia, CMP with BUN/Cr 35/1.13, total bili 1.70, AST/ALT 237/111, alk phos 366, troponin high-sensitivity 26, lipase 246, CT head with ring-enhancing metastases in the left frontal lobe approximately 1.4 cm in right frontal lobe deep white matter 2 cm with some surrounding vasogenic edema and minimal local sulcal mass- effect with no evidence of any midline shift. ED physician did discuss case with patient's oncologist. Pt reporting no prior history of speech therapy or previous Modified Barium Swallow Study. Current Diet Ordered: Soft and Bite Size w/Thin Liquids Dentition: Upper Dentures - Ill-fitting, Lower Dentures - Ill-fitting Mental Status: WNL Respiratory Status: Oxygenating on Room Air - Penetration-Aspiration Scale Penetration-Aspiration Scale: OBJECTIVE ASSESSMENT OF SWALLOW FUNCTION (QUANTITATIVE ? PER TRIAL): PENETRATION / ASPIRATION SCALE (JONES): 1 = does not enter airway 2 = enters airway/above vocal folds/ejected 3 = enters airway/above vocal folds/not ejected 4 = enters airway/contacts vocal folds/ejected 5 = enters airway/contacts vocal folds/not ejected 6 = enters airway/below vocal folds/ejected 7 = enters airway/below vocal folds/not ejected despite effort 8 = enters airway/below vocal folds/no effort - Penetration-Aspiration Scale Score Thin Liquid via teaspoon Comment: Unable to rule out penetration/aspiration of contrast d/t Pt losing bolus to pyriform sinuses prior to initiating imaging. Thin Liquid via teaspoon Trial 2 Comment: Unable to rule out penetration/aspiration of contrast d/t Pt losing bolus to pyriform sinuses prior to initiating imaging. Thin Liquid via teaspoon Trial 3 Result: 5= enters airways/contacts vocal folds/not ejected - Pt w/improved however still insignificant oral holding abilities; premature spillage of greater than half of bolus to pyriforms w/pre-prandial penetration of contrast to the VF prior to swallow onset. Thin Liquid via small single sip from cup Result: 8= enters airway/below vocal folds/no effort - Pt attempting to initiate multiple swallows for this small bolus w/silent aspiration evident; During additional swallows Pt sensing aspiration via weak, non-productive cough w/no ejection of contrast despite effort. Animas Thick Liquid via small single sip from cup Result: 5= enters airways/contacts vocal folds/not ejected - cued cough not effective Honey Thick Liquid via small single sip from cup Result: 5= enters airways/contacts vocal folds/not ejected - Visible contrast in laryngeal vestibule from NTL trial which penetrates to VF prior swallow being initiated for HTL; Pt penetrating HTL material when it reaches level of laryngeal vestibule. Pudding Comment: Pt presenting w/no oral clearance of pudding texture. Removed dentures when contrast reached tongue base. Cued Pt to reswallow. Unable to clear contrast. Pt demonstrating significantly impaired tongue base retraction and pharyngeal stripping wave action. During Pt's attempts to clear pudding trial, Pt SILENTLY aspirates pharyngeal residue from previous PO trials that had collected in the pyriform sinuses. Unable to determine pen/asp score as Pt unable to clear pudding texture when under fluoro. Thin Liquid via teaspoon Trial 4 Result: 8= enters airway/below vocal folds/no effort Comment: Attempting use of thin liquid rinse. Pt w/improved oral holding however continues to lose greater than half of bolus to pyriform sinuses w/gucci SILENT aspiration of contrast. Significant severe pharyngeal retention still present from previous pudding trial. - Oral Phase Labial Seal: No Labial Escape Tongue Control During Bolus Hold: Posterior escape of greater than half of bolus Bolus Preparation/Mastication: Minimal chewing/mashing with majority of bolus unchewed Bolus Transport/Lingual Motion: Minimal to no tongue motion Oral Residue: Minimal to no clearance - Pharyngeal Phase Initiation of Pharyngeal Swallow: Bolus head in pyriforms Soft Palate Elevation: No bolus between soft palate and pharyngeal wall - No contrast visible however soft palate w/limited elevation Laryngeal Elevation: Min superior movement thyroid cart/min apprx aryte cart- epig petiole Anterior Hyoid Excursion: Partial anterior movement Epiglottic Movement: No inversion Laryngeal Vestibule Closure at Height of Swallow: Incomplete; narrow column of air/contrast in laryngeal vestibule Pharyngeal Stripping Wave: Present - diminished Pharyngoesophageal Segment Opening: Minimal distension and minimal duration; marked obstruction of flow Tongue Base Retraction: No visible posterior motion of tongue base Pharyngeal Residue: Majority of contrast within or on pharyngeal structures - Esophageal Phase Esophageal Clearance: Complete clearance - Did not complete full esophageal scan, however, no visible retention in upper third. - Treatment Strategies Effects of treatment strategies attemped:: 3 second prep = NOT EFFECTIVE Cough and reswallow = NOT EFFECTIVE Double swallow = NOT EFFECTIVE Liquid chaser = NOT EFFECTIVE Reduced bolus size = NOT EFFECTIVE - Diagnosis/Impression Diagnosis: Severe Oropharyngeal Dysphagia (R13.12) Impression: The oral phase is primarily marked by: * Severe mastication inefficiency and suboptimal lingual control of bolus w/noted significantly reduced lingual lateralization resulting in severe oral residue post deglutition. * Swallow onset delay resulting in premature loss of greater than half of bolus to the pyriform sinuses, which contributed to penetration and aspiration of contrast during pharyngeal phase. The pharyngeal phase is primarily marked by: * Delayed pharyngeal swallow onset timing resulting w/head of bolus in pyriform sinus contributing to both pre-prandial and prandial aspiration * No epiglottic inversion resulting in reduced closure of the airway during deglutition * Poor pharyngeal motility attributed to limited to no visible tongue base retr action, reduced posterior pharyngeal stripping wave, and reduced PES distention/duration resulting in severe pharyngeal retention within the valleculae and pyriform sinuses contributing to post-prandial penetration and aspiration. * Significantly reduced laryngeal elevation and anterior hyoid excursion resulting in poor laryngeal vestibule closure and reduced PES distention * SILENT ASPIRATION of thin liquids via tsp and cup sip. Penetration of NTL and HTL to the vocal cords w/no ejection or cough response. * Noted insufficient and inconsistent cough response to expel penetrated material w/only 1x weak cough response noted following gucci aspiration of thin liquids. Cued cough response not significant to eject contrast. This suggests clinical assessment at bedside may be unreliable on identifying classic overt s/s of aspiration/penetration. The esophageal phase is unremarkable given the images taken. Unable to screen lower two thirds of esophagus due to time constraints, however upper third appear unremarkable w/no visible retention below PES. Diet Recommended: NPO w/consideration for alternative means of nutrition/hydration/medication w/implementation of the Guerin Free Water Protocol (FFWP) vs. continuation of PO intake for pleasure only w/ comfort care measures in place. Repeat MBSS: Yes, in 4-8 weeks following intensive skilled outpatient/HH speech therapy Education Provided: * Findings were discussed w/Pt immediately following MBSS conclusion * Pt verbalized understanding of recommendation for NPO w/alternative means of nutrition/hydration/medication vs. PO intake for pleasure only w/comfort measures in place; however suspect Pt to benefit from cont'd education. Education also required for spouse as she was not present at conclusion of the study. * Discussed result of MBSS w/RN, Pamela, who reported understanding of findings. Patient requires intensive skilled speech-language intervention targeting: * education re: new diet recommendations * training and implementation of recommended oropharyngeal strengthening exercises to facilitate improved pharyngeal motility w/hyolaryngeal elevation and excursion, tongue base retraction, and PES distention and duration (Ana, Carol, Shaker, Effortful Swallows) * Would also recommend Pt to continue w/outpatient or oncology speech therapy to monitor swallow function and adherence to home exercise program to improve oral and phargneal phase of swallow. - Status Active ST Patient: Active - Contact Information [facility] Speech Therapy:: Avelina PennS., CF-TODDLER GUIDE [facility] [address] [place] [address] [email or web address] 07/17/21 17:10
[2021-07-17 18:26] LABS: Bedside Glucose 114 mg/dL (70-110)
[2021-07-17 22:11] LABS: Bedside Glucose 103 mg/dL (70-110)
[2021-07-18] VITALS (14 sets, daily range): BP systolic 121–169; BP diastolic 66–101; PULSE 47–84; RESP 10–18; TEMP 36.3–36.7; O2SAT 92–97; BMI 24.7
[2021-07-18] MEDS: dexAMETHasone 4 MG/ML Vial IV ×4 (00:40→17:36)
[2021-07-18] MEDS: 0.9% Normal Saline 1,000 ML 100 ML IV ×2 (02:37→14:54)
[2021-07-18 06:50] LABS: Bedside Glucose 75 mg/dL (70-110)
[2021-07-18 07:15] LABS: Absolute Lymphocyte Count 0.21 X10^3/uL (0.83-4.51); Basophil# 0.02 X10^3/uL; Basophil% 0.2 % (0-1); Hematocrit 37.8 % (40-54); Hemoglobin 11.9 g/dL (13.0-16.5); Lymphocyte # 0.21 X10^3/ul (0.83-4.51); Lymphocyte % 2.2 % (19-41); Mean Corp Hgb Conc 31.5 g/dL (32-36); Mean Corpuscular Hgb 27.2 pg (27.0-32.0); Mean Corpuscular Volume 86.3 fL (80-94); Mean Platelet Vol. 10.1 fl (6.2-12.0); Monocyte# 0.37 X10^3/uL; Monocyte% 3.8 % (0-10); NRBC Flagged by Analyzer 0 % (0-5); Neutrophil # 8.95 X10^3/uL (2.7-7.7); Neutrophil % 92.8 % (47-70); POSITIVE DIFFERENTIAL YES; POSITIVE MORPHOLOGY YES; Platelet Count 146 K/mm3 (150-450); RBC Distribution Width CV 20.3 % (11.6-14.6); RBC Distribution Width SD 62.8 fl (35.1-43.9); Red Blood Count 4.38 M/mm3 (4.6-6.2); White Blood Count 9.7 K/mm3 (4.4-11.0)
[2021-07-18 07:22] LABS: Differential Indicated SCAN CRITERIA MET
[2021-07-18 07:46] LABS: Anion Gap 7 (5-15); BUN 30 mg/dL (7-18); BUN/Creat Ratio 29.1 RATIO (10-20); Calcium,Total 8.4 mg/dL (8.5-10.1); Chloride 107 mmol/L (98-107); Creatinine, Serum 1.03 mg/dL (0.70-1.30); EST Glomerular Filtration Rate 75 mL/min (>60); Est Glom Filt Rate - Afr Amer 91 mL/min (>60); Estimated Creatinine Clearance 73.16 ml/min; Glucose 78 mg/dL (74-106); Potassium 3.7 mmol/L (3.5-5.1); Sodium Level 142 mmol/L (136-145)
[2021-07-18 08:38] LABS: Anisocytosis 1+
--- NOTE | 2021-07-18 09:00 | CT_ITS ---
PROCEDURE: CT DIRECTED CORE LIVER BIOPSY INDICATION: Male, 75 years old. LIVER METS PHYSICIAN: Dr. GRETA Beyer CONSENT: Written informed consent was obtained having explained the risks, benefits and alternatives in detail with the patient who accepted the risks and agreed to proceed. Laboratory review and clinical assessment was performed. CONSCIOUS SEDATION PROTOCOL: The Drugs used were: 1 mg Versed, IV., and 25 mcg Fentanyl, IV. The sedation time was: 27 minutes. Conscious sedation was started at 9:36 AM and terminated at 10:03 AM. The conscious sedation protocol was independently monitored. RADIATION DOSAGE (If Supplied By Facility): CTDIvol = ( 26 ) mGy, DLP = ( 1499.03 ) mGycm Individualized dose optimization techniques were used for this CT. TECHNIQUE: Using CT image guidance with image documentation, a suitable location in the left lobe of the liver was identified. Using an anterior approach, puncture of the liver was uneventful with an 18-gauge core needle system. A 18-gauge core samples were obtained, and submitted in formalin to the pathologist for further assessment. Followup CT scan revealed no distinct sequelae. CT/Biopsy/Inj or Needle Placement IMPRESSION: 1. CT directed core needle biopsy of the liver, using CT image guidance with image documentation as described. 2. Conscious Sedation protocol utilized with independent monitoring. Electronically Signed: Ash Blake MD at 10:34 EDT , Service support ,
--- NOTE | 2021-07-18 09:03 | NURSING ---
Pt off the floor at this time. Brought down to Radiology via bed for liver biopsy at this time.
[2021-07-18] MEDS: Midazolam 2 MG/2 ML Syringe IV (09:36)
[2021-07-18] MEDS: fentaNYL 100 MCG/2 ML Ampul IV ×2 (09:36→10:15)
[2021-07-18] MEDS: Lidocaine 2% (20 ml mdv) 20 ML Vial INFILT (09:45)
--- NOTE | 2021-07-18 10:16 | PN.HOSP_ITS ---
Subjective Subjective Patient seen and examiend. He had no complaints today. He is due for the liver biopsy today. He couldnt have it yesterday because he ate breakfast. Patient also had a swallow test which he failed. He has remained hemodynamically stable. Objective Data Objective Data Vital Signs: Vital Signs Temp Pulse Resp BP Pulse Ox 97.7 F L 47 L 16 155/94 H 94 07/18/21 08:30 07/18/21 09:43 07/18/21 09:43 07/18/21 09:43 07/18/21 09:15 Oxygen Flow Rate (L/min) [6] 2 Oxygen Flow Rate (L/min) [5] 2 Oxygen Flow Rate (L/min) [4] 2 Oxygen Flow Rate (L/min) [3] 2 Oxygen Flow Rate (L/min) [2] 2 Oxygen Flow Rate (L/min) [1 ( 2 Initial Baseline)] Oxygen Flow Rate (L/min) 1 Oxygen Delivery Method [6] Nasal Cannula Oxygen Delivery Method [5] Nasal Cannula Oxygen Delivery Method [4] Nasal Cannula Oxygen Delivery Method [3] Nasal Cannula Oxygen Delivery Method [2] Nasal Cannula Oxygen Delivery Method [1 ( Non-Rebreather Initial Baseline)] Oxygen Delivery Method Room Air Weight: 192 lb 10.944 oz Body Mass Index (BMI) 24.7 Intake & Output: Intake and Output for Last 24 Hours 07/16/21 07/17/21 07/18/21 23:59 23:59 23:59 Intake Total 1566.66 / 1566.66 966.67 / 966.67 1000 / 1000 Output Total 225 / 225 965 / 965 400 / 400 Balance 1341.66 / 1341.66 1.67 / 1.67 600 / 600 Medical Nutrition Assessment Dietitian: Malnutrition Criteria Met Start: 07/16/21 15:34 Freq: Status: Active Protocol: Document 07/16/21 16:12 RMA (Rec: 07/16/21 16:12 RMA [id number]) Nutrition Malnutrition Evidence of Malnutrition Exists Yes Malnutrition (severe): Chronic Evidenced By Suboptimal Energy Intake ( Severe),Weight Loss (Severe), Physical Changes (Severe) Clinical Problem Chronic Disease or Condition Related Malnutrition Etiology Severe protein/calorie malnutrition in the context of chronic disease related to cancer with metastasis and increased energy expenditure Signs/Symptoms as evidenced by ~10-12% wt loss x past 4-6 months, +NFPA with visible muscle and fast wasting in the face, clavicle, arms and upper body and PO meeting less than 50% increased nutrition needs for repletion Status Active Problem Recommendation Dietitian Recommendations/Changes Will liberalize diet to regular/no added salt. Will add vanilla ensure pudding BID w/ lunch and dinner. Will add orange magic cup w/ lunch and dinner. Will add vanilla ensure compact w/ breakfast. Lab / Micro Data Result Diagrams: 07/18/21 06:24 07/18/21 06:24 Labs: Laboratory Results - last 24 hr 07/17/21 11:47: POC Glucose 113 H 07/17/21 18:06: POC Glucose 114 H 07/17/21 21:39: POC Glucose 103 07/18/21 06:24: WBC 9.7, RBC 4.38 L, Hgb 11.9 L, Hct 37.8 L, MCV 86.3, MCH 27.2, MCHC 31.5 L, RDW Std Deviation 62.8 H, RDW Coeff of Rocky 20.3 H, Plt Count 146 L, MPV 10.1, Immature Gran % (Auto) 1.000 H, Neut % (Auto) 92.8 H, Lymph % (Auto) 2.2 L, Duchesne % (Auto) 3.8, Eos % (Auto) 0.0, Baso % (Auto) 0.2, Absolute Neuts (auto) 9.0 H, Absolute Lymphs (auto) 0.21 L, Nucleated RBC % 0, Anisocytosis 1+ 07/18/21 06:24: Sodium 142, Potassium 3.7, Chloride 107, Carbon Dioxide 28.0, Anion Gap 7, BUN 30 H, Creatinine 1.03, Estim Creat Clear Calc 73.16, Est GFR (MDRD) Af Amer 91, Est GFR (MDRD) Non-Af 75, BUN/Creatinine Ratio 29.1 H, Glucose 78, Calcium 8.4 L 07/18/21 06:42: POC Glucose 75 Physical Exam Const alert, oriented x3 and no apparent distress Constitutional Narrative: elderly and frail looking. Exam Limitations: no limitations HEENT head/scalp atraumatic and moist oral mucous membranes Head and Scalp: normocephalic Eyes PERRL, EOMs intact bilaterally and conjunctivae normal Neck no lymphadenopathy Resp Resp Narrative: diminished breath sounds bibasally, no wheezes or crackles. On room air Cardio regular rate, regular rhythm, S1 normal heart sound, S2 normal heart sound and no murmurs GI GI Narrative: abdomen markedly distended, massive hepatosplenomegaly. No tende rness or guarding or rebound tenderness. Extremity normal to inspection Skin no rashes or lesions noted Neuro oriented x3, CN's II-XII intact bilaterally and moves all extremities Sensorium / Orientation: awake and alert Psych affect normal Assessment & Plan Assessment/Plan (1) Metastatic cancer: QUALIFIERS: Area of secondary neoplastic involvement: nervous system structure Nervous system structure secondary neoplasm location: metastatic to brain Qualified Code(s): C79.31 - Secondary malignant neoplasm of brain (2) Failure to thrive in adult: PLAN: #Metastatic oropharyngeal cancer * diagnosed with cancer ~ 4 years ago and is s/p chemoradiation and surgery. * CT of the abdomen done on account of worsening lower extremity swelling showed enlarged liver with multiple metastatic masses. * CT of the brain done showed bifrontal metastasis showed ring-enhancing metastasis in the left frontal lobe approximately 1.4 cm with some surrounding vasogenic edema. * MRI of the brain showed diffuse metastatic disease to the cerebral and cerebellar hemispheres. * Oncology on board. Radiation oncology on board. * PT OT on board. Fall precautions. * On IV Decadron 4mg every 6 hours as needed * Also on IV Keppra for seizure prophylaxis * for liver biopsy today * #Failure to thrive due to metastatic oropharyngeal cancer * As above. Nutrition also consulted as patient is also malnourished. * had a swallow evaluation yesterday which he failed. To discuss with and patient about PEG tube placement. * #Elevated liver enzymes * getting a liver biopsy today. this is all likely due to metastatic cancer with liver mets. * #CAD: S/p PCI: Also does not appear to be on any medication right now. #Type 2 diabetes mellitus: Appears to be diet controlled.he is not on any med ication. #Hyperlipidemia: Not on statin therapy. DVT prophylaxis: SCDs #GI prophylaxis: Famotidine Charges/Coding Visit Charges Inpatient E&M: 66348 Subs Hosp L3
--- NOTE | 2021-07-18 10:44 | CASEMGMT ---
Social Work Pt provided copy of living will and health care POA naming Carline Alves. Documents placed on pt chart. RIMA Szymanski
--- NOTE | 2021-07-18 10:58 | CASEMGMT ---
Social Work SW met with pt's and offered support. Pt out of room for procedure. Pt's stating that discharge plan has not been established yet, as they care waiting on more test results. Carline states that she and pt have had conversations about goals of care but no decisions have been made at this time. Options of home with hospice, home with home health and TCU have been discussed. Pt is currently on waiting list for TCU in the event the pt chooses this option. NED will continue to follow. RIMA Szymanski
[2021-07-18] MEDS: Famotidine 200 MG/20 ML MDV 20 MG in 0.9% Normal Saline (Pres. free 8 ML 300 MG IV (11:21)
[2021-07-18] MEDS: 0.9% Saline Lock 10 ML Syringe IV ×2 (11:22→17:36)
[2021-07-18 12:15] LABS: Bedside Glucose 64 mg/dL (70-110)
--- NOTE | 2021-07-18 12:28 | NURSING ---
came out of pts room and tearful. Stated that pt does not want peg tube and she was ready to take him home with hospice and wanted to let him eat. Dr. Gupta aware and order for consult for hospice given to this nurse. Dr. Gupta said to continue NPO status until Hospice sees him.
[2021-07-18] MEDS: Dextrose 50%-Water 25 GM/50 ML DISP.SYRIN IV (12:55)
[2021-07-18 14:40] LABS: Bedside Glucose 76 mg/dL (70-110)
[2021-07-18 17:36] LABS: Bedside Glucose 81 mg/dL (70-110)
[2021-07-18] MEDS: Mag Hydrox/Al Hydrox/Simeth 30 ML UDC PO (17:36)
[2021-07-18 21:15] LABS: Bedside Glucose 125 mg/dL (70-110)
[2021-07-19] MEDS: dexAMETHasone 4 MG/ML Vial IV ×4 (00:03→18:27)
[2021-07-19] MEDS: 0.9% Normal Saline 1,000 ML 100 ML IV ×3 (00:03→22:01)
[2021-07-19 02:51] VITALS: BP 143/77; PULSE 77; RESP 18; TEMP 36.4; O2SAT 93
[2021-07-19 07:06] LABS: Bedside Glucose 97 mg/dL (70-110)
[2021-07-19 07:40] LABS: Absolute Lymphocyte Count 0.16 X10^3/uL (0.83-4.51); Absolute Neutrophil Count 9.7 X10^3/uL (2.0-7.7); Basophil# 0.03 X10^3/uL; Basophil% 0.3 % (0-1); Hematocrit 37.2 % (40-54); Hemoglobin 11.4 g/dL (13.0-16.5); Lymphocyte # 0.16 X10^3/ul (0.83-4.51); Lymphocyte % 1.5 % (19-41); Mean Corp Hgb Conc 30.6 g/dL (32-36); Mean Corpuscular Hgb 26.6 pg (27.0-32.0); Mean Corpuscular Volume 86.9 fL (80-94); Mean Platelet Vol. 9.9 fl (6.2-12.0); Monocyte# 0.44 X10^3/uL; Monocyte% 4.2 % (0-10); NRBC Flagged by Analyzer 0 % (0-5); Neutrophil # 9.66 X10^3/uL (2.7-7.7); Neutrophil % 92.1 % (47-70); POSITIVE DIFFERENTIAL YES; POSITIVE MORPHOLOGY YES; Platelet Count 158 K/mm3 (150-450); RBC Distribution Width CV 20.8 % (11.6-14.6); RBC Distribution Width SD 64.4 fl (35.1-43.9); Red Blood Count 4.28 M/mm3 (4.6-6.2); White Blood Count 10.5 K/mm3 (4.4-11.0)
[2021-07-19 07:59] LABS: Differential Indicated SCAN CRITERIA MET
[2021-07-19 08:11] LABS: Anion Gap 8 (5-15); BUN 36 mg/dL (7-18); BUN/Creat Ratio 31.9 RATIO (10-20); Calcium,Total 8.2 mg/dL (8.5-10.1); Chloride 111 mmol/L (98-107); Creatinine, Serum 1.13 mg/dL (0.70-1.30); EST Glomerular Filtration Rate 67 mL/min (>60); Est Glom Filt Rate - Afr Amer 81 mL/min (>60); Estimated Creatinine Clearance 66.68 ml/min; Glucose 90 mg/dL (74-106); Sodium Level 143 mmol/L (136-145)
[2021-07-19 09:04] LABS: Platelet Estimate ADEQUATE (ADEQ)
[2021-07-19 09:05] LABS: Anisocytosis 1+; Hypochromasia 1+; Red Cell Morphology N CYTIC NORMAL (NORM C&C)
--- NOTE | 2021-07-19 10:34 | CASEMGMT ---
SOCIAL WORK Spoke with patient's nurse, Martha. Per nurse, has been in contact with and with Hospice. Hospice to get hospital bed delivered to patient's home tomorrow. Anticipate plan for home with Hospice on Wednesday as not prepared to take patient home this weekend. Nurse has discussed with Dr. Gupta. to be in this afternoon. Will follow up to confirm plan. Joey Hitchcock, GRINDING [employer] POLISHING LABORER, [employer] PRESS OPERATOR
[2021-07-19] MEDS: 0.9% Saline Lock 10 ML Syringe IV ×2 (10:52→15:15)
[2021-07-19] MEDS: Famotidine 200 MG/20 ML MDV 20 MG in 0.9% Normal Saline (Pres. free 8 ML 300 MG IV (10:53)
[2021-07-19 11:04] VITALS: BP 146/75; PULSE 96; RESP 18; TEMP 36.8; O2SAT 94
[2021-07-19 12:06] LABS: Bedside Glucose 117 mg/dL (70-110)
[2021-07-19 14:00] VITALS: RESP 18
--- NOTE | 2021-07-19 16:08 | PN.HOSP_ITS ---
Subjective Subjective Paietnt seen and examined. He had no active complaints and was eager to be discharged home. Patient and have opted for home with hospice.He has remained hemodynamically stable. Objective Data Objective Data Vital Signs: Vital Signs Temp Pulse Resp BP Pulse Ox 98.3 F 96 18 146/75 H 94 07/19/21 11:04 07/19/21 11:04 07/19/21 11:04 07/19/21 11:04 07/19/21 11:04 Oxygen Flow Rate (L/min) [6] 2 Oxygen Flow Rate (L/min) [5] 2 Oxygen Flow Rate (L/min) [4] 2 Oxygen Flow Rate (L/min) [3] 2 Oxygen Flow Rate (L/min) [2] 2 Oxygen Flow Rate (L/min) [1 ( 2 Initial Baseline)] Oxygen Flow Rate (L/min) 1 Oxygen Delivery Method [6] Nasal Cannula Oxygen Delivery Method [5] Nasal Cannula Oxygen Delivery Method [4] Nasal Cannula Oxygen Delivery Method [3] Nasal Cannula Oxygen Delivery Method [2] Nasal Cannula Oxygen Delivery Method [1 ( Non-Rebreather Initial Baseline)] Oxygen Delivery Method Room Air Weight: 192 lb 10.944 oz Body Mass Index (BMI) 24.7 Intake & Output: Intake and Output for Last 24 Hours 07/17/21 07/18/21 07/19/21 23:59 23:59 23:59 Intake Total 966.67 / 966.67 2460 / 2460 2880 / 2880 Output Total 965 / 965 900 / 900 450 / 450 Balance 1.67 / 1.67 1560 / 1560 2430 / 2430 Medical Nutrition Assessment Dietitian: Malnutrition Criteria Met Start: 07/16/21 15:34 Freq: Status: Active Protocol: Document 07/16/21 16:12 RMA (Rec: 07/16/21 16:12 RMA [id number]) Nutrition Malnutrition Evidence of Malnutrition Exists Yes Malnutrition (severe): Chronic Evidenced By Suboptimal Energy Intake ( Severe),Weight Loss (Severe), Physical Changes (Severe) Clinical Problem Chronic Disease or Condition Related Malnutrition Etiology Severe protein/calorie malnutrition in the context of chronic disease related to cancer with metastasis and increased energy expenditure Signs/Symptoms as evidenced by ~10-12% wt loss x past 4-6 months, +NFPA with visible muscle and fast wasting in the face, clavicle, arms and upper body and PO meeting less than 50% increased nutrition needs for repletion Status Active Problem Recommendation Dietitian Recommendations/Changes Will liberalize diet to regular/no added salt. Will add vanilla ensure pudding BID w/ lunch and dinner. Will add orange magic cup w/ lunch and dinner. Will add vanilla ensure compact w/ breakfast. Lab / Micro Data Result Diagrams: 07/19/21 07:15 07/19/21 07:15 Labs: Laboratory Results - last 24 hr 07/18/21 17:28: POC Glucose 81 07/18/21 21:04: POC Glucose 125 H 07/19/21 06:24: POC Glucose 97 07/19/21 07:15: WBC 10.5, RBC 4.28 L, Hgb 11.4 L, Hct 37.2 L, MCV 86.9, MCH 26.6 L, MCHC 30.6 L, RDW Std Deviation 64.4 H, RDW Coeff of [place] 20.8 H, Plt Count 158, MPV 9.9, Immature Gran % (Auto) 1.900 H, Neut % (Auto) 92.1 H, Lymph % (Au to) 1.5 L, [place] % (Auto) 4.2, Eos % (Auto) 0.0, Baso % (Auto) 0.3, Absolute N euts (auto) 9.7 H, Absolute Lymphs (auto) 0.16 L, Nucleated RBC % 0, Platelet Estimate ADEQUATE, RBC Morphology N CYTIC, Hypochromasia 1+, Anisocytosis 1+ 07/19/21 07:15: Sodium 143, Potassium 4.0, Chloride 111 H, Carbon Dioxide 24.0, Anion Gap 8, BUN 36 H, Creatinine 1.13, Estim Creat Clear Calc 66.68, Est GFR (MDRD) Af Amer 81, Est GFR (MDRD) Non-Af 67, BUN/Creatinine Ratio 31.9 H, Glucose 90, Calcium 8.2 L 07/19/21 12:03: POC Glucose 117 H Physical Exam Const alert, oriented x3 and no apparent distress Constitutional Narrative: elderly and frail looking. Exam Limitations: no limitations HEENT head/scalp atraumatic and moist oral mucous membranes Head and Scalp: normocephalic Eyes PERRL, EOMs intact bilaterally and conjunctivae normal Neck no lymphadenopathy Resp Resp Narrative: diminished breath sounds bibasally, no wheezes or crackles. On room air Cardio regular rate, regular rhythm, S1 normal heart sound, S2 normal heart sound and no murmurs GI GI Narrative: abdomen markedly distended, massive hepatosplenomegaly. No tenderness or guarding or rebound tenderness. 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 * CT of the abdomen done on account of worsening lower extremity swelling showed enlarged liver with multiple metastatic masses. * CT of the brain done showed bifrontal metastasis showed ring-enhancing metastasis in the left frontal lobe approximately 1.4 cm with some surrounding vasogenic edema. * MRI of the brain showed diffuse metastatic disease to the cerebral and cerebel lar hemispheres. * Oncology on board. Radiation oncology on board. * PT OT on board. Fall precautions. * On IV Decadron 4mg every 6 hours as needed * Also on IV Keppra for seizure prophylaxis * had liver biopsy yesterday. Patient and have opted for home with hospice. * #Failure to thrive due to metastatic oropharyngeal cancer * As above. Nutrition also consulted as patient is also malnourished. * had a swallow evaluation yesterday which he failed.Patient refused a PEG tube and is opting for home with hospice. * #Elevated liver enzymes * this is all likely due to metastatic cancer with liver mets. HE did get a liver biopsy yesterday, results of which are pending. * #CAD: S/p PCI: Also does not appear to be on any medication right now. #Type 2 diabetes mellitus: Appears to be diet controlled.he is not on any medication. #Hyperlipidemia: Not on statin therapy. DVT prophylaxis: SCDs #GI prophylaxis: Famotidine Disposition: awaiting discharge home with hospice once has home set up. Charges/Coding Visit Charges Inpatient E&M: 05278 Subs Hosp L2
[2021-07-19 16:22] VITALS: BP 131/78; PULSE 76; RESP 12; TEMP 36.8; O2SAT 95
[2021-07-19 16:51] LABS: Bedside Glucose 99 mg/dL (70-110)
[2021-07-19 21:56] VITALS: BP 128/84; PULSE 85; RESP 18; TEMP 36.6; O2SAT 94
[2021-07-19 22:46] LABS: Bedside Glucose 111 mg/dL (70-110)
[2021-07-20] VITALS (8 sets, daily range): BP systolic 136–155; BP diastolic 76–89; PULSE 80–88; RESP 16–18; TEMP 36.2–36.6; O2SAT 88–97
[2021-07-20] MEDS: dexAMETHasone 4 MG/ML Vial IV ×4 (00:33→17:23)
[2021-07-20] MEDS: 0.9% Saline Lock 10 ML Syringe IV ×2 (00:33→06:32)
[2021-07-20] MEDS: 0.9% Normal Saline 1,000 ML 100 ML IV (06:30)
[2021-07-20 06:45] LABS: Bedside Glucose 89 mg/dL (70-110)
[2021-07-20 08:06] LABS: Absolute Lymphocyte Count 0.18 X10^3/uL (0.83-4.51); Absolute Neutrophil Count 8.9 X10^3/uL (2.0-7.7); Basophil# 0.02 X10^3/uL; Basophil% 0.2 % (0-1); Hematocrit 37.5 % (40-54); Hemoglobin 11.7 g/dL (13.0-16.5); Lymphocyte # 0.18 X10^3/ul (0.83-4.51); Lymphocyte % 1.9 % (19-41); Mean Corp Hgb Conc 31.2 g/dL (32-36); Mean Corpuscular Hgb 27.3 pg (27.0-32.0); Mean Corpuscular Volume 87.4 fL (80-94); Mean Platelet Vol. 10.2 fl (6.2-12.0); Monocyte# 0.42 X10^3/uL; Monocyte% 4.3 % (0-10); NRBC Flagged by Analyzer 0 % (0-5); Neutrophil # 8.92 X10^3/uL (2.7-7.7); Neutrophil % 92.2 % (47-70); POSITIVE DIFFERENTIAL YES; POSITIVE MORPHOLOGY YES; Platelet Count 147 K/mm3 (150-450); RBC Distribution Width CV 20.9 % (11.6-14.6); RBC Distribution Width SD 64.6 fl (35.1-43.9); Red Blood Count 4.29 M/mm3 (4.6-6.2); White Blood Count 9.7 K/mm3 (4.4-11.0)
[2021-07-20 08:08] LABS: Differential Indicated SCAN CRITERIA MET
[2021-07-20 08:21] LABS: Anion Gap 7 (5-15); BUN 35 mg/dL (7-18); BUN/Creat Ratio 31.8 RATIO (10-20); Calcium,Total 8.1 mg/dL (8.5-10.1); Chloride 111 mmol/L (98-107); EST Glomerular Filtration Rate 69 mL/min (>60); Est Glom Filt Rate - Afr Amer 84 mL/min (>60); Glucose 84 mg/dL (74-106); Potassium 4.1 mmol/L (3.5-5.1); Sodium Level 144 mmol/L (136-145)
[2021-07-20 08:47] LABS: Hypochromasia 1+; Platelet Estimate ADEQUATE (ADEQ)
[2021-07-20] MEDS: Famotidine 200 MG/20 ML MDV 20 MG in 0.9% Normal Saline (Pres. free 8 ML 300 MG IV (10:05)
[2021-07-20 11:15] LABS: Bedside Glucose 116 mg/dL (70-110)
--- NOTE | 2021-07-20 12:21 | PN.HOSP_ITS ---
Subjective Subjective Patient seen and examined. He had no complaints. He had an uneventful night. Review of systems otherwise negative. He is awaiting discharge. According to his nurse, will have everything set up at home for him tomorrow also likely discharge tomorrow. Objective Data Objective Data Vital Signs: Vital Signs Temp Pulse Resp BP Pulse Ox 97.9 F 88 18 147/77 H 97 07/20/21 08:29 07/20/21 08:29 07/20/21 08:29 07/20/21 08:29 07/20/21 08:29 Oxygen Flow Rate (L/min) [6] 2 Oxygen Flow Rate (L/min) [5] 2 Oxygen Flow Rate (L/min) [4] 2 Oxygen Flow Rate (L/min) [3] 2 Oxygen Flow Rate (L/min) [2] 2 Oxygen Flow Rate (L/min) [1 ( 2 Initial Baseline)] Oxygen Flow Rate (L/min) 2 Oxygen Delivery Method [6] Nasal Cannula Oxygen Delivery Method [5] Nasal Cannula Oxygen Delivery Method [4] Nasal Cannula Oxygen Delivery Method [3] Nasal Cannula Oxygen Delivery Method [2] Nasal Cannula Oxygen Delivery Method [1 ( Non-Rebreather Initial Baseline)] Oxygen Delivery Method Room Air Weight: 196 lb 13.965 oz Body Mass Index (BMI) 24.7 Intake & Output: Intake and Output for Last 24 Hours 07/18/21 07/19/21 07/20/21 23:59 23:59 22:59 Intake Total 2460 / 2460 4435 / 4435 1313.34 / 1313.34 Output Total 900 / 900 650 / 650 200 / 200 Balance 1560 / 1560 3785 / 3785 1113.34 / 1113.34 Medical Nutrition Assessment Dietitian: Malnutrition Criteria Met Start: 07/16/21 15:34 Freq: Status: Active Protocol: Document 07/16/21 16:12 RMA (Rec: 07/16/21 16:12 RMA [id number]) Nutrition Malnutrition Evidence of Malnutrition Exists Yes Malnutrition (severe): Chronic Evidenced By Suboptimal Energy Intake ( Severe),Weight Loss (Severe), Physical Changes (Severe) Clinical Problem Chronic Disease or Condition Related Malnutrition Etiology Severe protein/calorie malnutrition in the context of chronic disease related to cancer with metastasis and increased energy expenditure Signs/Symptoms as evidenced by ~10-12% wt loss x past 4-6 months, +NFPA with visible muscle and fast wasting in the face, clavicle, arms and upper body and PO meeting less than 50% increased nutrition needs for repletion Status Active Problem Recommendation Dietitian Recommendations/Changes Will liberalize diet to regular/no added salt. Will add vanilla ensure pudding BID w/ lunch and dinner. Will add orange magic cup w/ lunch and dinner. Will add vanilla ensure compact w/ breakfast. Lab / Micro Data Result Diagrams: 07/20/21 07:45 07/20/21 07:45 Labs: Laboratory Results - last 24 hr 07/19/21 16:43: POC Glucose 99 07/19/21 22:00: POC Glucose 111 H 07/20/21 06:34: POC Glucose 89 07/20/21 07:45: WBC 9.7, RBC 4.29 L, Hgb 11.7 L, Hct 37.5 L, MCV 87.4, MCH 27.3, MCHC 31.2 L, RDW Std Deviation 64.6 H, RDW Coeff of [place] 20.9 H, Plt Count 147 L, MPV 10.2, Immature Gran % (Auto) 1.400 H, Neut % (Auto) 92.2 H, Lymph % (Auto) 1.9 L, [place] % (Auto) 4.3, Eos % (Auto) 0.0, Baso % (Auto) 0.2, Absolute Neuts (auto) 8.9 H, Absolute Lymphs (auto) 0.18 L, Nucleated RBC % 0, Platelet Estimate ADEQUATE, Hypochromasia 1+ 07/20/21 07:45: Sodium 144, Potassium 4.1, Chloride 111 H, Carbon Dioxide 26.0, Anion Gap 7, BUN 35 H, Creatinine 1.10, Estim Creat Clear Calc 68.50, Est GFR (MDRD) Af Amer 84, Est GFR (MDRD) Non-Af 69, BUN/Creatinine Ratio 31.8 H, Glucose 84, Calcium 8.1 L 07/20/21 11:05: POC Glucose 116 H Physical Exam Const alert, oriented x3 and no apparent distress Constitutional Narrative: elderly and frail looking. Exam Limitations: no limitations HEENT head/scalp atraumatic and moist oral mucous membranes Head and Scalp: normocephalic Eyes PERRL, EOMs intact bilaterally and conjunctivae normal Neck no lymphadenopathy Resp Resp Narrative: diminished breath sounds bibasally, no wheezes or crackles. On room air Cardio regular rate, regular rhythm, S1 normal heart sound, S2 normal heart sound and no murmurs GI GI Narrative: abdomen markedly distended, massive hepatosplenomegaly. No tenderness or guarding or rebound tenderness. 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 * CT of the abdomen done on account of worsening lower extremity swelling showed enlarged liver with multiple metastatic masses. * CT of the brain done showed bifrontal metastasis showed ring-enhancing metastasis in the left frontal lobe approximately 1.4 cm with some surrounding vasogenic edema. * MRI of the brain showed diffuse metastatic disease to the cerebral and cerebellar hemispheres. * Oncology on board. Radiation oncology on board. * PT OT on board. Fall precautions. * On IV Decadron 4mg every 6 hours as needed * Also on IV Keppra for seizure prophylaxis * has had liver biopsy, and results are pending. * Patient and have opted for home with hospice. * #Failure to thrive due to metastatic oropharyngeal cancer * As above. Nutrition also on board as patient is also malnourished. * had a swallow evaluation which he failed. * Patient refused a PEG tube and is opting for home with hospice. * #Elevated liver enzymes * this is all likely due to metastatic cancer with liver mets. He * did get a liver biopsy, results of which are pending. * #CAD: S/p PCI: Also does not appear to be on any medication right now. #Type 2 diabetes mellitus: Appears to be diet controlled.he is not on any medication. #Hyperlipidemia: Not on statin therapy. DVT prophylaxis: SCDs #GI prophylaxis: Famotidine Disposition: awaiting discharge home with hospice once has home set up for home hospice. For likely DC tomorrow. Charges/Coding Visit Charges Inpatient E&M: 65669 Subs Hosp L2
[2021-07-20 16:16] LABS: Bedside Glucose 97 mg/dL (70-110)
[2021-07-20] MEDS: MELATONIN 3 MG TABLET PO (21:21)
[2021-07-20 21:31] LABS: Bedside Glucose 101 mg/dL (70-110)
[2021-07-21] MEDS: dexAMETHasone 4 MG/ML Vial IV ×2 (00:14→06:43)
[2021-07-21] MEDS: 0.9% Saline Lock 10 ML Syringe IV ×2 (00:14→06:43)
[2021-07-21 03:25] VITALS: BP 140/89; PULSE 87; RESP 18; TEMP 36.3; O2SAT 93
[2021-07-21 06:10] LABS: Absolute Lymphocyte Count 0.24 X10^3/uL (0.83-4.51); Absolute Neutrophil Count 9.5 X10^3/uL (2.0-7.7); Basophil# 0.03 X10^3/uL; Basophil% 0.3 % (0-1); Hematocrit 39.5 % (40-54); Lymphocyte # 0.24 X10^3/ul (0.83-4.51); Lymphocyte % 2.3 % (19-41); Mean Corp Hgb Conc 30.4 g/dL (32-36); Mean Corpuscular Hgb 26.5 pg (27.0-32.0); Mean Corpuscular Volume 87.4 fL (80-94); Mean Platelet Vol. 9.8 fl (6.2-12.0); Monocyte# 0.41 X10^3/uL; NRBC Flagged by Analyzer 0 % (0-5); Neutrophil # 9.51 X10^3/uL (2.7-7.7); POSITIVE DIFFERENTIAL YES; POSITIVE MORPHOLOGY YES; Platelet Count 154 K/mm3 (150-450); RBC Distribution Width SD 65.1 fl (35.1-43.9); Red Blood Count 4.52 M/mm3 (4.6-6.2); White Blood Count 10.3 K/mm3 (4.4-11.0)
[2021-07-21 06:33] LABS: Anion Gap 7 (5-15); BUN 37 mg/dL (7-18); BUN/Creat Ratio 32.2 RATIO (10-20); Calcium,Total 8.6 mg/dL (8.5-10.1); Chloride 110 mmol/L (98-107); Creatinine, Serum 1.15 mg/dL (0.70-1.30); EST Glomerular Filtration Rate 66 mL/min (>60); Est Glom Filt Rate - Afr Amer 80 mL/min (>60); Estimated Creatinine Clearance 65.52 ml/min; Glucose 86 mg/dL (74-106); Potassium 4.2 mmol/L (3.5-5.1); Sodium Level 143 mmol/L (136-145)
[2021-07-21 06:51] LABS: Bedside Glucose 88 mg/dL (70-110)
[2021-07-21 07:06] LABS: Differential Indicated SCAN CRITERIA MET
[2021-07-21 07:15] VITALS: O2SAT 90
[2021-07-21 08:05] LABS: Anisocytosis 1+
--- NOTE | 2021-07-21 08:19 | PCM.DC ---
Discharge Instructions Diet Discharge Diet: No restrictions Activity Discharge Activity: Return to Normal Activity Follow Up Care Test Results: Test results from this visit will be discussed in further detail at your follow-up appointment, if applicable. Discharge Plan Admission Admit Date/Time: 07/15/21 18:34 Primary Reason for Your Visit: Debility Attending Provider: Cyndee Ramirez Primary Care Provider: Beatriz Woods Consulting Providers: Eitan Burk ; Freddy Rock ; Elsy George ; Abel Tran ; Delfina Steen ; Laura Wing ; Arabella Gupta ; Tamiko Yousif MARKETING DATABASE CONSULTANT Instructions Additional Instructions / Restrictions: Continue to follow-up up on recommendations from Hospice Discharge Orders/Prescriptions Prescriptions: New dexamethasone [Decadron] 4 mg tablet 4 mg PO BID 30 Days Qty: 60 RF: 0 levetiracetam [Keppra] 500 mg tablet 500 mg PO BID 30 Days Qty: 60 RF: 0 No Action NK RF: 0 Referrals / Follow Up: Beatriz Woods PA [Primary Care Provider] - Disposition Disposition (needs filled in before D/C Order can be placed): Hospice in Home
--- NOTE | 2021-07-21 08:25 | PCM.DC.SUM ---
Providers Date of Admission: 07/15/21 Primary Care Physician: ES Min Consultations 07/15/21 19:46 Consult: Oncology/Hematology Routine Consulting Provider: Eitan Burk Reason for Consult: Metastatic CA, including to brain EMERGENT Consult: No MD Notified: Yes Date Notified: 07/15/21 Time Notified: 18:35 Method of Notification: per ED. 07/16/21 10:40 Consult: Radiation Oncology Routine Consulting Provider: Freddy Rock Reason for Consult: oropharyngeal cancer with brain mets EMERGENT Consult: No MD Notified: Yes Date Notified: 07/16/21 Time Notified: 10:40 Method of Notification: Verbal 07/18/21 12:31 Consult: Hospice / Palliative Care Routine Consulting Provider: [facility] Reason for Consult: metastic Cancer EMERGENT Consult: No MD Notified: Yes Date Notified: 07/18/21 Time Notified: 12:32 Method of Notification: phone Method of Consult:: In-Person Reason For Visit: FTT, METASTATIC CA Diagnosis Discharge Diagnosis (1) Metastatic cancer: Status: Acute Code(s): C79.9 - Secondary malignant neoplasm of unspecified site Qualifiers: Area of secondary neoplastic involvement: nervous system structure Nervous system structure secondary neoplasm location: metastatic to brain Qualified Code(s): C79.31 - Secondary malignant neoplasm of brain (2) Failure to thrive in adult: Status: Acute Code(s): R62.7 - Adult failure to thrive (3) Severe protein-calorie malnutrition: Status: Acute Code(s): E43 - Unspecified severe protein-calorie malnutrition (4) Dysphagia: Status: Acute Code(s): R13.10 - Dysphagia, unspecified (5) Elevated liver enzymes: Status: Acute Code(s): R74.8 - Abnormal levels of other serum enzymes (6) Bilateral edema of lower extremity: Status: Acute Code(s): R60.0 - Localized edema Medications at Discharge Home Medications NK 07/15/21 dexamethasone [Decadron] 4 mg PO BID 30 Days #60 tab 07/21/21 levetiracetam [Keppra] 500 mg PO BID 30 Days #60 tab 07/21/21 Hospital Course Operations None Procedures - (CT-guided core liver biopsy on 07/18/21, modified barium swallow on 07/17/21) Summary of Care Provided Minutes Spent on Discharge: 45 Hospital Course: 75-year-old male with past medical history of 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 Patient had a PET scan done on 07/08/21 with had shown multifocal metastatic disease. Patient was admitted on 09/14/20 with debility. He reportedly has been having frequent falls, unable to get out of chair, required use of lift chair. Patient's work-up had showed multiple lesions in the brain especially in bilateral frontal lobes with vasogenic edema. Patient was also found to have severe bilateral lower extremity edema which was believed to be secondary to multiple liver mets with IVC compression. He also had malnutrition, severe protein calorie, nutrition consulted, put on supplements. Oncology and radiation oncology were consulted on patient in this admission. Patient was started on IV Decadron 4 mg every 6 and also IV Keppra 500 mg twice daily. Speech therapy also followed up with patient and he failed his modified barium and videofluoroscopic swallow eval. Upon further discussion with patient and the , they opted to go home with hospice. He was allowed to eat any food he wanted. Patient was discharged home with hospice. He was discharged on Decadron 4 mg twice daily as well as Keppra 500 mg p.o. twice daily. Physical Exam Narrative Physical exam: General: Alert, Oriented x3, Cooperative, No apparent distress, on 2L oxygen, appears comfortable HEENT: Atraumatic Oral: Moist Mucosa Neck: Supple Lungs: Diminished to auscultation, coarse crackles at bases Cardiovascular: HS I+II, regular, no murmurs Abdomen: Bowel Sounds Present, Soft, Non Tender, hepatosplenomegaly+, Extremities: Bilateral leg edema +3-4, LUE edema +3, skin tear in antecubital fossa Medical Records Data Medical Nutrition Assessment Dietitian: Malnutrition Criteria Met Start: 07/16/21 15:34 Freq: Status: Active Protocol: Document 07/16/21 16:12 RMA (Rec: 07/16/21 16:12 RMA [id number]) Nutrition Malnutrition Evidence of Malnutrition Exists Yes Malnutrition (severe): Chronic Evidenced By Suboptimal Energy Intake ( Severe),Weight Loss (Severe), Physical Changes (Severe) Clinical Problem Chronic Disease or Condition Related Malnutrition Etiology Severe protein/calorie malnutrition in the context of chronic disease related to cancer with metastasis and increased energy expenditure Signs/Symptoms as evidenced by ~10-12% wt loss x past 4-6 months, +NFPA with visible muscle and fast wasting in the face, clavicle, arms and upper body and PO meeting less than 50% increased nutrition needs for repletion Status Active Problem Recommendation Dietitian Recommendations/Changes Will liberalize diet to regular/no added salt. Will add vanilla ensure pudding BID w/ lunch and dinner. Will add orange magic cup w/ lunch and dinner. Will add vanilla ensure compact w/ breakfast. Weight / BMI Weight Weight: 90.492 kg Body Mass Index (BMI) 24.7 ABG / Lab / Microbiology Data Result Diagrams: 07/21/21 06:00 07/21/21 06:00 Laboratory: Laboratory Results - last 24 hr 07/20/21 07:45: Platelet Estimate ADEQUATE, Hypochromasia 1+ 07/20/21 11:05: POC Glucose 116 H 07/20/21 16:11: POC Glucose 97 07/20/21 21:19: POC Glucose 101 07/21/21 06:00: WBC 10.3, RBC 4.52 L, Hgb 12.0 L, Hct 39.5 L, MCV 87.4, MCH 26.5 L, MCHC 30.4 L, RDW Std Deviation 65.1 H, RDW Coeff of [place] 21.0 H, Plt Count 154, MPV 9.8, Immature Gran % (Auto) 1.400 H, Neut % (Auto) 92.0 H, Lymph % (Auto) 2.3 L, [place] % (Auto) 4.0, Eos % (Auto) 0.0, Baso % (Auto) 0.3, Absolute Neuts (auto) 9.5 H, Absolute Lymphs (auto) 0.24 L, Nucleated RBC % 0, Differential Comment COMMENT, Anisocytosis 1+ 07/21/21 06:00: Sodium 143, Potassium 4.2, Chloride 110 H, Carbon Dioxide 26.0, Anion Gap 7, BUN 37 H, Creatinine 1.15, Estim Creat Clear Calc 65.52, Est GFR (MDRD) Af Amer 80, Est GFR (MDRD) Non-Af 66, BUN/Creatinine Ratio 32.2 H, Glucose 86, Calcium 8.6 07/21/21 06:45: POC Glucose 88 D/C Instructions Discharge Diet: No restrictions Meaningful Use Info Meaningful Use Diagnoses (Choose all that apply): None applicable Discharge Plan Admission Admit Date/Time: 07/15/21 18:34 Primary Reason for Your Visit: Debility Attending Provider: Cyndee Ramirez Primary Care Provider: Beatriz Woods Consulting Providers: Eitan Burk ; Freddy Rock ; Elsy George ; Abel Tran ; Delfina Steen ; Laura Wing ; Arabella Gupta ; Tamiko Yousif WRAPPER OPERATOR Instructions Additional Instructions / Restrictions: Continue to follow-up up on recommendations from Hospice Discharge Orders/Prescriptions Prescriptions: New dexamethasone [Decadron] 4 mg tablet 4 mg PO BID 30 Days Qty: 60 RF: 0 levetiracetam [Keppra] 500 mg tablet 500 mg PO BID 30 Days Qty: 60 RF: 0 No Action NK RF: 0 Referrals / Follow Up: Beatriz Woods PA [Primary Care Provider] - Disposition Disposition (needs filled in before D/C Order can be placed): Hospice in Home Charges/Coding Visit Charges Inpatient E&M: 14870 Disch Hosp
[2021-07-21 09:03] VITALS: BP 146/67; PULSE 83; RESP 18; TEMP 36.5; O2SAT 95
[2021-07-21 09:12] VITALS: BP 146/67; PULSE 83; RESP 18; TEMP 36.5; O2SAT 95
--- NOTE | 2021-07-21 09:20 | CASEMGMT ---
Pt is going home on hospice today. SW called [facility], confirmed all DME was delivered to the home yesterday and they are ready for pt whenever pt goes home. As per RN, pt and would like pt to get home as soon as possible. SW called , confirmed all DME delivered and she is ready for pt to come home. SW called [facility], set up a 9:30 am ambulance. SW let , pt, RN, [facility] know time of pickup. NED faxed all discharge information to [facility]. No further needs, pt home on hospice today. MARIS Tracy
== END 2021-07-21 09:55 | disposition hospice, home (50) | DRG 843 ==
LOC: ED 18:06 → MS2 18:54
PROVIDERS: Student in an Organized Health Care Education/Training Program; Admitting Provider Family Medicine; Emergency Provider Emergency Medicine; Visit Provider Internal Medicine
DX: C7B.8 Other secondary neuroendocrine tumors (principal); E43 Unspecified severe protein-calorie malnutrition; G93.6 Cerebral edema; C79.31 Secondary malignant neoplasm of brain; C78.01 Secondary malignant neoplasm of right lung; R62.7 Adult failure to thrive; R29.6 Repeated falls; Z68.24 Body mass index [BMI] 24.0-24.9, adult; R13.10 Dysphagia, unspecified; M79.89 Other specified soft tissue disorders; I25.10 Atherosclerotic heart disease of native coronary artery without angina pectoris; E11.9 Type 2 diabetes mellitus without complications; I10 Essential (primary) hypertension; E78.5 Hyperlipidemia, unspecified; I25.2 Old myocardial infarction; Z92.3 Personal history of irradiation; Z92.21 Personal history of antineoplastic chemotherapy; Z85.810 Personal history of malignant neoplasm of tongue; Z87.891 Personal history of nicotine dependence; Z90.79 Acquired absence of other genital organ(s); Z95.5 Presence of coronary angioplasty implant and graft
CPT/HCPCS: 36415; 36591; 70470; 70553; 74230; 77012; 80048; 80053; 82962; 83036; 83605; 83690; 83735; 84100; 84484; 85025; 85610; 85730; 88108; 88172; 88305; 88307; 88313; 88341; 88342; 92526; 92610; 92611; 93970; 97110; 97162; 97166; 97530; 97535; 97802; 99156; 99251; 99284; 99406; A9575; J7030; A4216; G0463; J3490